=== PATIENT | male | born 1940 | race African-American/Black ===

== ENCOUNTER 2016-11-24 14:07 | Inpatient (IN) | payer MEDICARE ==
[~2016-11-24] VITALS: Ht 191.8 cm; Wt 76.3 kg
--- NOTE | 2016-11-24 14:57 | PHYS DOC ---
Past Medical History Past Medical History: Dementia, Hypertension Past Surgical History: No Surgical History Alcohol Use: None Drug Use: None Adult General Chief Complaint Chief Complaint: DIZZY/LIGHT HEADED HPI HPI Patient is a 76 year old male who [place]. Patient states he was standing at the post office and also became dizzy and lightheaded and almost passed out. Patient stated the episode lasted for less than 30 minutes. Patient was able to drive home and discussed the symptoms with his who recommended he come to the emergency room for evaluation. Patient denied any chest pain or shortness of breath. Patient is asymptomatic in the emergency room and feels much better. Patient states the dizziness has resolved. Patient denies any fevers. Patient has no other complaints. Pertinent exam findings: Cranial nerves II through XII are grossly intact without any focal neurological deficits Heart is regular rate and rhythm murmurs Lungs are clear to auscultation bilaterally without crackles wheezes or rales ED course: Patient was seen and evaluated in the emergency room a CBC, CMP, troponin, EKG, CT of the head without contrast was ordered 1503: EKG normal sinus rhythm rate of 63 no STEMI 1550: Troponin reported elevated lab 1603: Repeat EKG sinus bradycardia rate of 57 and a STEMI 1627: Discussed CC/HP/PMH with Dr. De Guzman and recommends admit and cardiology consult 1635: Discussed results with the patient and the plan to admit for the elevated troponin Pertinent findings: Troponin 0.297 CT the head unremarkable MDM: After reviewing the chart, CC/HPI/PMH, physical exam, [lab results], [ radiological results], do not patient have an STEMI despite the elevated troponin however given his symptoms of dizziness and the elevated troponin this could be cardiac in nature therefore will admit for further evaluation and management. Review of Systems Review of Systems GEN: Denies fevers, chills, sweats HEENT: Denies blurred vision, sore throat CV: Denies chest pain RESP: Denies shortness of air, cough GI: Denies n/v/d NEURO: Dizziness MSK: Denies weakness, joint pain/swelling Current Medications Current Medications Current Medications Medications (Trade) Dose Ordered Sig/Anthony Start Time Stop Time Status Last Admin Dose Admin Morphine Sulfate 4 mg PRN Q2HR PRN 11/24/16 16:30 11/25/16 16:29 Ondansetron HCl (Zofran) 4 mg PRN Q8HRS PRN 11/24/16 16:30 11/25/16 16:29 Sodium Chloride 1,000 ml @ 1,000 mls/hr 1X ONCE 11/24/16 15:15 11/24/16 16:14 DC 11/24/16 15:12 1,000 MLS/HR Allergies Allergies Allergies Coded Allergies Type Severity Reaction Last Updated Verified No Known Drug Allergies 11/24/16 No Physical Exam Physical Exam GEN.: No apparent distress. Alert and oriented. HEENT: Head is normocephalic, atraumatic NECK: Supple. LUNGS: CTAB. HEART: RRR, S1, S2 present. Peripheral pulses intact ABDOMEN: Soft, nontender. Positive bowel sounds. EXTREMITIES: Without any cyanosis. NEUROLOGIC: Normal speech, normal tone PSYCHIATRIC: Normal affect, normal mood. SKIN: No ulcerations Current Patient Data Vital Signs Vital Signs Date Time Temp Pulse Resp B/P (MAP) Pulse Ox O2 Delivery O2 Flow Rate FiO2 11/24/16 15:12 60 133/73 (93) 98 11/24/16 14:21 97.9 20 Room Air 97.9 Lab Values Laboratory Tests Test 11/24/16 14:15 11/24/16 15:00 11/24/16 15:20 White Blood Count 3.6 x10^3/uL (4.0-11.0) L Red Blood Count 4.20 x10^6/uL (4.30-5.70) L Hemoglobin 13.1 g/dL (13.0-17.5) Hematocrit 39.5 % (39.0-53.0) Mean Corpuscular Volume 94 fL (79-100) Mean Corpuscular Hemoglobin 31 pg (25-35) Mean Corpuscular Hemoglobin Concent 33 g/dL (31-37) Red Cell Distribution Width 13.8 % (11.5-14.5) Platelet Count 257 x10^3/uL (140-400) Neutrophils (%) (Auto) 41 % (31-73) Lymphocytes (%) (Auto) 46 % (24-48) Monocytes (%) (Auto) 11 % (0-9) H Eosinophils (%) (Auto) 2 % (0-3) Basophils (%) (Auto) 0 % (0-3) Neutrophils # (Auto) 1.5 x10^3uL (1.8-7.7) L Lymphocytes # (Auto) 1.7 x10^3/uL (1.0-4.8) Monocytes # (Auto) 0.4 x10^3/uL (0.0-1.1) Eosinophils # (Auto) 0.1 x10^3/uL (0.0-0.7) Basophils # (Auto) 0.0 x10^3/uL (0.0-0.2) Urine Collection Type Unknown Urine Color Yellow Urine Clarity Clear Urine pH 6.0 Urine Specific [place] <=1.005 Urine Protein Negative mg/dL (NEG-TRACE) Urine Glucose (UA) Negative mg/dL (NEG) Urine Ketones (Stick) Negative mg/dL (NEG) Urine Blood Negative (NEG) Urine Nitrite Negative (NEG) Urine Bilirubin Negative (NEG) Urine Urobilinogen Dipstick 0.2 mg/dL (0.2 mg/dL) Urine Leukocyte Esterase Negative (NEG) Urine RBC 0 /HPF (0-2) Urine WBC 0 /HPF (0-4) Urine Bacteria 0 /HPF (0-FEW) Sodium Level 138 mmol/L (136-145) Potassium Level 3.9 mmol/L (3.5-5.1) Chloride Level 100 mmol/L (98-107) Carbon Dioxide Level 29 mmol/L (21-32) Anion Gap 9 (6-14) Blood Urea Nitrogen 9 mg/dL (8-26) Creatinine 1.0 mg/dL (0.7-1.3) Estimated GFR (Cockcroft-Gault) 88.4 BUN/Creatinine Ratio 9 (6-20) Glucose Level 101 mg/dL (70-99) H Calcium Level 9.0 mg/dL (8.5-10.1) Total Bilirubin 0.7 mg/dL (0.2-1.0) Aspartate Amino Transferase (AST) 20 U/L (15-37) Alanine Aminotransferase (ALT) 22 U/L (16-63) Alkaline Phosphatase 53 U/L (46-116) Troponin I Quantitative 0.297 ng/mL (0.000-0.055) Total Protein 6.7 g/dL (6.4-8.2) Albumin 3.4 g/dL (3.4-5.0) Albumin/Globulin Ratio 1.0 (1.0-1.7) Laboratory Tests 11/24/16 14:15 Laboratory Tests 11/24/16 15:20 EKG EKG [] Radiology/Procedures Radiology/Procedures CT scan of the head unremarkable [] Course & Med Decision Making Course & Med Decision Making Pertinent Labs and Imaging studies reviewed. (See chart for details) [] Dragon Disclaimer Dragon Disclaimer This electronic medical record was generated, in whole or in part, using a voice recognition dictation system. Departure Departure Impression: Primary Impression: Elevated troponin Additional Impression: Dizziness Disposition: 09 ADMITTED INPATIENT Admitting Physician: Glory De Guzman Condition: STABLE Referrals: JOHN HARDEN MD (PCP) Problem Qualifiers CLARENCE BENJAMIN DO November 24, 2016 14:57
[2016-11-24 15:03] LABS: BASO % 0 % (0-3); EOS % 2 % (0-3); HEMATOCRIT 39.5 % (39.0-53.0); HEMOGLOBIN 13.1 g/dL (13.0-17.5); LYMPH # 1.7 x10^3/uL (1.0-4.8); LYMPH % 46 % (24-48); MEAN CORPUSCULAR HEMOGLOBIN 31 pg (25-35); MEAN CORPUSCULAR HGB CONC 33 g/dL (31-37); MEAN CORPUSCULAR VOLUME 94 fL (79-100); MONO % 11 % (0-9); NEUT % 41 % (31-73); PLATELET COUNT 257 x10^3/uL (140-400); RED CELL DISTRIBUTION WIDTH 13.8 % (11.5-14.5); WHITE BLOOD COUNT 3.6 x10^3/uL (4.0-11.0)
[2016-11-24 15:09] LABS: BILIRUBIN,URINE NEGATIVE (NEG); GLUCOSE,URINE NEGATIVE (NEG); NITRITE,URINE NEGATIVE (NEG); PROTEIN,URINE NEGATIVE (NEG-TRACE); UROBILINOGEN,URINE 0.2 mg/dL (0.2 mg/dL)
[2016-11-24] MEDS ORDERED: IV NORMAL SALINE 1000ML BAG 1,000 ML IV ONE (15:15)
--- NOTE | 2016-11-24 15:17 | RAD ---
Indication severe dizziness. Noncontrast images of the head were obtained. No prior imaging of the head is available. The calvarium appears unremarkable. The visualized paranasal sinuses appear normal. There is no subdural or epidural hematoma. There is some slight underlying atrophy compatible with the patient's age. Increased lucency in the deep white matter is compatible with microvascular disease. No mass hemorrhage midline shift or acute finding is apparent. IMPRESSION: No acute finding seen in the head PQRS Compliance Statement: One or more of the following individualized dose reduction techniques were utilized for this examination: 1. Automated exposure control 2. Adjustment of the mA and/or kV according to patient size 3. Use of iterative reconstruction technique
[2016-11-24 15:20] LABS: BACTERIA,URINE 0 /HPF (0-FEW); RBC,URINE 0 /HPF (0-2); WBC,URINE 0 /HPF (0-4)
[2016-11-24 15:37] LABS: GFR 88.4; POTASSIUM 3.9 mmol/L (3.5-5.1)
[2016-11-24 15:43] LABS: ALBUMIN 3.4 g/dL (3.4-5.0); TOTAL BILIRUBIN 0.7 mg/dL (0.2-1.0); TOTAL PROTEIN 6.7 g/dL (6.4-8.2)
--- NOTE | 2016-11-24 16:04 | EKG ---
[facility] [address] [place] [address] Test Date: 2016-11-24 Test Time: 15:58:42 Pat Name: CLARISSA MORGAN Department: Room: Gender: M Charge Account Authorizer: : 1940 Requested By: CLARENCE BENJAMIN Order Number: [id number] Reading MD: Michael Camarena Measurements Intervals [place] Rate: 57 P: NV: QRS: 15 QRSD: 70 T: 66 QT: 432 QTc: 424 Interpretive Statements SINUS BRADYCARDIA PAC'S Electronically Signed On 11-26-2016 9:18:34 CDT by Michael Camarena
--- NOTE | 2016-11-24 16:04 | EKG ---
[facility] [address] [place] [address] Test Date: 2016-11-24 Test Time: 14:24:22 Pat Name: CLARISSA MORGAN Department: Room: Gender: M Director Of Neurology: : 1940 Requested By: CLARENCE BENJAMIN Order Number: [id number] Reading MD: Michael Camarena Measurements Intervals [place] Rate: 63 P: 59 NC: 160 QRS: 12 QRSD: 72 T: 78 QT: 390 QTc: 402 Interpretive Statements SINUS RHYTHM PVC NON-SPECIFIC ST/T CHANGES Electronically Signed On 11-26-2016 9:17:01 CDT by Michael Camarena
[2016-11-24] MEDS ORDERED: ONDANSETRON PF 4 MG/2 ML VIAL. IV PRN ×2 (16:30→17:00)
[2016-11-24] MEDS ORDERED: MORPHINE SULFATE 4 MG/ML DISP.SYRIN. IV PRN (16:30)
--- NOTE | 2016-11-24 16:52 | PDOC1 ---
History and Physical Date of Admission Date of Admission 11/24/16 Identification/Chief Complaint Chief Complaint dizzyness Problems: Source Source: Chart review, Patient History of Present Illness History of Present Illness HPI Patient is a 76 year old male who presents with dizziness that occurred at the post office [place]. Pt said it never happened before. HE was standing in the post office, then felt light headed, for 1-2 min, then went to his car and the dizziness was gone. He didnot syncoped and able to drive home wo problem. He told his at home and was brought to ER. Pt denies chest pain, palpitation, sob, fever, chills, N/V. normal BM AND URInation. in ER was found troponin 0.2 , EKG ok as per ERP. cannot access EKG in the computer system. Past Medical History Cardiovascular: HTN Past Surgical History Past Surgical History: No pertinent history Family History Family History: Hypertension Social History Smoke: No ALCOHOL: occassional Drugs: None Current Medications Current Medications Current Medications Medications (Trade) Dose Ordered Sig/Nathony Start Time Stop Time Status Last Admin Dose Admin Morphine Sulfate 4 mg PRN Q2HR PRN 11/24/16 16:30 11/25/16 16:29 Ondansetron HCl (Zofran) 4 mg PRN Q8HRS PRN 11/24/16 16:30 11/25/16 16:29 Sodium Chloride 1,000 ml @ 1,000 mls/hr 1X ONCE 11/24/16 15:15 11/24/16 16:14 DC 11/24/16 15:12 1,000 MLS/HR Allergies Allergies Allergies Coded Allergies Type Severity Reaction Last Updated Verified No Known Drug Allergies 11/24/16 No ROS Review of System CONSTITUTIONAL: No fever or chills EYES: No recent changes SKIN: No rash or itching CARDIOVASCULAR: No chest pain, syncope, palpitations, or edema RESPIRATORY: No SOB or cough GASTROINTESTINAL: No nausea, vomiting or abdominal pain NEUROLOGICAL: No headaches or weakness ENDOCRINE: No cold or heat intolerance GENITOURINARY: No urgency or frequency of urination MUSCULOSKELETAL: No back pain or joint pain LYMPHATICS: No enlarged lymph nodes PSYCHIATRIC: No anxiety or depression Physical Exam Physical Exam GEN.: No apparent distress. Alert and oriented. HEENT: Head is normocephalic, atraumatic NECK: Supple. LUNGS: Clear to auscultation. HEART: RRR, S1, S2 present. Peripheral pulses intact ABDOMEN: Soft, nontender. Positive bowel sounds. EXTREMITIES: Without any cyanosis. NEUROLOGIC: Normal speech, normal tone PSYCHIATRIC: Normal affect, normal mood. SKIN: No ulcerations Vitals Vitals Vital Signs Date Time Temp Pulse Resp B/P (MAP) Pulse Ox O2 Delivery O2 Flow Rate FiO2 11/24/16 15:12 60 133/73 (93) 98 11/24/16 14:21 97.9 20 Room Air 97.9 Labs Labs Laboratory Tests Test 11/24/16 14:15 11/24/16 15:00 11/24/16 15:20 White Blood Count 3.6 x10^3/uL (4.0-11.0) Red Blood Count 4.20 x10^6/uL (4.30-5.70) Hemoglobin 13.1 g/dL (13.0-17.5) Hematocrit 39.5 % (39.0-53.0) Mean Corpuscular Volume 94 fL (79-100) Mean Corpuscular Hemoglobin 31 pg (25-35) Mean Corpuscular Hemoglobin Concent 33 g/dL (31-37) Red Cell Distribution Width 13.8 % (11.5-14.5) Platelet Count 257 x10^3/uL (140-400) Neutrophils (%) (Auto) 41 % (31-73) Lymphocytes (%) (Auto) 46 % (24-48) Monocytes (%) (Auto) 11 % (0-9) Eosinophils (%) (Auto) 2 % (0-3) Basophils (%) (Auto) 0 % (0-3) Neutrophils # (Auto) 1.5 x10^3uL (1.8-7.7) Lymphocytes # (Auto) 1.7 x10^3/uL (1.0-4.8) Monocytes # (Auto) 0.4 x10^3/uL (0.0-1.1) Eosinophils # (Auto) 0.1 x10^3/uL (0.0-0.7) Basophils # (Auto) 0.0 x10^3/uL (0.0-0.2) Urine Collection Type Unknown Urine Color Yellow Urine Clarity Clear Urine pH 6.0 Urine Specific [place] <=1.005 Urine Protein Negative mg/dL (NEG-TRACE) Urine Glucose (UA) Negative mg/dL (NEG) Urine Ketones (Stick) Negative mg/dL (NEG) Urine Blood Negative (NEG) Urine Nitrite Negative (NEG) Urine Bilirubin Negative (NEG) Urine Urobilinogen Dipstick 0.2 mg/dL (0.2 mg/dL) Urine Leukocyte Esterase Negative (NEG) Urine RBC 0 /HPF (0-2) Urine WBC 0 /HPF (0-4) Urine Bacteria 0 /HPF (0-FEW) Sodium Level 138 mmol/L (136-145) Potassium Level 3.9 mmol/L (3.5-5.1) Chloride Level 100 mmol/L (98-107) Carbon Dioxide Level 29 mmol/L (21-32) Anion Gap 9 (6-14) Blood Urea Nitrogen 9 mg/dL (8-26) Creatinine 1.0 mg/dL (0.7-1.3) Estimated GFR (Cockcroft-Gault) 88.4 BUN/Creatinine Ratio 9 (6-20) Glucose Level 101 mg/dL (70-99) Calcium Level 9.0 mg/dL (8.5-10.1) Total Bilirubin 0.7 mg/dL (0.2-1.0) Aspartate Amino Transf (AST/SGOT) 20 U/L (15-37) Alanine Aminotransferase (ALT/SGPT) 22 U/L (16-63) Alkaline Phosphatase 53 U/L (46-116) Troponin I Quantitative 0.297 ng/mL (0.000-0.055) Total Protein 6.7 g/dL (6.4-8.2) Albumin 3.4 g/dL (3.4-5.0) Albumin/Globulin Ratio 1.0 (1.0-1.7) Laboratory Tests Test 11/24/16 14:15 11/24/16 15:00 11/24/16 15:20 White Blood Count 3.6 x10^3/uL (4.0-11.0) Red Blood Count 4.20 x10^6/uL (4.30-5.70) Hemoglobin 13.1 g/dL (13.0-17.5) Hematocrit 39.5 % (39.0-53.0) Mean Corpuscular Volume 94 fL (79-100) Mean Corpuscular Hemoglobin 31 pg (25-35) Mean Corpuscular Hemoglobin Concent 33 g/dL (31-37) Red Cell Distribution Width 13.8 % (11.5-14.5) Platelet Count 257 x10^3/uL (140-400) Neutrophils (%) (Auto) 41 % (31-73) Lymphocytes (%) (Auto) 46 % (24-48) Monocytes (%) (Auto) 11 % (0-9) Eosinophils (%) (Auto) 2 % (0-3) Basophils (%) (Auto) 0 % (0-3) Neutrophils # (Auto) 1.5 x10^3uL (1.8-7.7) Lymphocytes # (Auto) 1.7 x10^3/uL (1.0-4.8) Monocytes # (Auto) 0.4 x10^3/uL (0.0-1.1) Eosinophils # (Auto) 0.1 x10^3/uL (0.0-0.7) Basophils # (Auto) 0.0 x10^3/uL (0.0-0.2) Urine Collection Type Unknown Urine Color Yellow Urine Clarity Clear Urine pH 6.0 Urine Specific [place] <=1.005 Urine Protein Negative mg/dL (NEG-TRACE) Urine Glucose (UA) Negative mg/dL (NEG) Urine Ketones (Stick) Negative mg/dL (NEG) Urine Blood Negative (NEG) Urine Nitrite Negative (NEG) Urine Bilirubin Negative (NEG) Urine Urobilinogen Dipstick 0.2 mg/dL (0.2 mg/dL) Urine Leukocyte Esterase Negative (NEG) Urine RBC 0 /HPF (0-2) Urine WBC 0 /HPF (0-4) Urine Bacteria 0 /HPF (0-FEW) Sodium Level 138 mmol/L (136-145) Potassium Level 3.9 mmol/L (3.5-5.1) Chloride Level 100 mmol/L (98-107) Carbon Dioxide Level 29 mmol/L (21-32) Anion Gap 9 (6-14) Blood Urea Nitrogen 9 mg/dL (8-26) Creatinine 1.0 mg/dL (0.7-1.3) Estimated GFR (Cockcroft-Gault) 88.4 BUN/Creatinine Ratio 9 (6-20) Glucose Level 101 mg/dL (70-99) Calcium Level 9.0 mg/dL (8.5-10.1) Total Bilirubin 0.7 mg/dL (0.2-1.0) Aspartate Amino Transf (AST/SGOT) 20 U/L (15-37) Alanine Aminotransferase (ALT/SGPT) 22 U/L (16-63) Alkaline Phosphatase 53 U/L (46-116) Troponin I Quantitative 0.297 ng/mL (0.000-0.055) Total Protein 6.7 g/dL (6.4-8.2) Albumin 3.4 g/dL (3.4-5.0) Albumin/Globulin Ratio 1.0 (1.0-1.7) VTE Prophylaxis Ordered VTE Prophylaxis Devices: Yes VTE Pharmacological Prophylaxi: Yes Assessment/Plan Assessment/Plan 1. dizzyness, lightheaded 2. high troponin, not clear etiology 3. HTN 4. H/O dementia? plan: card consult need home meds cycle CE check orthostatic HR, BP echo dvt ppx FEDERICA RON MD November 24, 2016 16:52
[2016-11-24] MEDS ORDERED: DOCUSATE SODIUM 100 MG CAPSULE. PO PRN (17:00)
[2016-11-24] MEDS ORDERED: MORPHINE SULFATE 2 MG/ML DISP.SYRIN. IV PRN (17:00)
[2016-11-24] MEDS ORDERED: traMADol 50 MG TABLET PO PRN (17:00)
[2016-11-24] MEDS ORDERED: hydrALAZINE 20 MG/ML VIAL. IVP PRN (17:00)
[2016-11-24] MEDS ORDERED: ACETAMINOPHEN 325 MG TABLET. PO PRN (17:00)
[2016-11-24] MEDS ORDERED: ASPIRIN CHEWABLE 81 MG TABLET. PO ONE (17:00)
[2016-11-24 17:15] VITALS: BP 153/80
--- NOTE | 2016-11-24 18:34 | ACF ---
Admission Forms Criteria DIZZINESS Clinical Indications for Admission to Inpatient Care (Place 'X' for any and all applicable criteria): Admission is indicated for ANY ONE of the following(1)(2)(3)(4): [ ]I. Inpatient admission required rather than observation care (Also use Dizziness: Observation Care as appropriate) because of ANY ONE of the following: [ ]a) Hemodynamic instability that is severe or persistent [ ]b) Signs or symptoms that are severe or persistent (eg, vomit, orthostasis, inability to ambulate) [ ]c) Cardiac arrhythmias of immediate concern [ ]d) Severe (new) neurologic findings requiring inpatient care as indicated by ANY ONE of the following(6)(7): [ ]1) Cerebral bleeding, ischemia, or vasospasm(8)(9) [ ]2) Increased intracranial pressure or hydrocephalus(10)(11)(12) [ ]3) Papilledema [ ]4) Cerebral edema [ ]5) Mass effect on CT scan [ ]e) Continuous IV infusion of anticoagulation, platelet inhibitor, vasoactive, or antiarrhythmic medication [ ]f) Cerebral bleeding, hydrocephalus, or vasospasm monitoring(14) [ ]g) Increased intracranial pressure or cerebral edema monitoring [ ]h) Vomiting that is severe or persistent [ ]i) Other condition, treatment or monitoring requiring inpatient admission [X]II. A suspected etiology that requires admission for treatment [ ]III. Acute bacterial labyrinthitis [ ]IV. Cerebellar, brainstem, or cerebral ischemia or hemorrhage (5) Extended stay beyond goal length of stay may be needed for evaluating and treating a specific cause of dizziness, including(32) [ ]a) Head injury (Also use Traumatic Brain Injury, Nonsurgical Treatment guideline) [ ]b) New-onset vertebrobasilar vascular insufficiency [ ]c) Acute Meniere disease with intractable symptoms [ ]d) Cardiac arrhythmias or conduction defects [ ]e) Acute neurologic event causing dizziness [ ]f) Myocardial ischemia [ ]g) Acute bacterial labyrinthitis. [ ]h) Severe acute vestibular neuronitis The original [facility] content created by [email or web address] has been revised. The portions of the content which have been revised are identified through the use of italic text or in bold, and [email or web address] has neither reviewed nor approved the modified material. All other unmodified content is copyright [facility]. Please see references footnoted in the original [facility] edition 2016 Admission Criteria Met?: Yes JUANA LIGHT November 24, 2016 18:34
[2016-11-24] MEDS ORDERED: DONE10TA7 PO (19:33)
[2016-11-24] MEDS ORDERED: SIMV10TA3 PO (19:33)
[2016-11-24] MEDS ORDERED: HYDR25TA9 PO (19:33)
[2016-11-24] MEDS ORDERED: CHOL20002 PO (19:33)
[2016-11-24] MEDS ORDERED: DOXA8TAB59 PO (19:33)
[2016-11-24] MEDS ORDERED: CHLO1CAP PO (19:33)
[2016-11-24 19:45] VITALS: BP 120/66
[2016-11-24] MEDS ORDERED: SIMVASTATIN 10 MG TABLET PO SCH (21:00)
[2016-11-24] MEDS: DOXAZOSIN MESYLATE 4 MG TABLET. PO SCH (21:30)
[2016-11-24 23:15] VITALS: BP 123/79
[2016-11-24 23:18] VITALS: BP 133/81
[2016-11-24 23:20] VITALS: BP 130/78
[2016-11-25] VITALS (7 sets, daily range): BP systolic 110–127; BP diastolic 55–79
[2016-11-25 04:14] LABS: BASO % 0 % (0-3); EOS % 1 % (0-3); HEMOGLOBIN 11.9 g/dL (13.0-17.5); LYMPH % 52 % (24-48); MEAN CORPUSCULAR HEMOGLOBIN 31 pg (25-35); MEAN CORPUSCULAR HGB CONC 33 g/dL (31-37); MEAN CORPUSCULAR VOLUME 93 fL (79-100); MONO % 11 % (0-9); NEUT % 36 % (31-73); PLATELET COUNT 230 x10^3/uL (140-400); RED BLOOD COUNT 3.85 x10^6/uL (4.30-5.70); RED CELL DISTRIBUTION WIDTH 13.8 % (11.5-14.5); WHITE BLOOD COUNT 3.8 x10^3/uL (4.0-11.0)
[2016-11-25 04:51] LABS: CALCIUM 8.7 mg/dL (8.5-10.1); CREATININE 0.9 mg/dL (0.7-1.3); GFR 99.8; POTASSIUM 3.6 mmol/L (3.5-5.1)
[2016-11-25] MEDS ORDERED: DONEPEZIL HCL 10 MG TABLET. PO SCH (09:00)
[2016-11-25] MEDS ORDERED: hydroCHLOROthiazide 25 MG TABLET PO SCH (09:00)
[2016-11-25] MEDS ORDERED: ENOXAPARIN 40 MG/0.4 ML SYRINGE. SQ SCH (09:00)
--- NOTE | 2016-11-25 09:30 | PDOC2 ---
CARDIAC CONSULT DATE OF CONSULT Date of Consult DATE: 11/25/16 TIME: 09:24 REASON FOR CONSULT Reason for Consult: elevated troponin REFERRING PHYSICIAN Referring Physician: jennifer SOURCE Source: Caregiver (spouse), Chart review, Patient HISTORY OF PRESENT ILLNESS HISTORY OF PRESENT ILLNESS This is a pleasant 76 male admitted for complains of dizziness. Reports that in the last few weeks she has been having very brief periods of dizziness which has not caused him any problems and this mainly happens when he skips food. No recent falls, injury or syncope. He has not been having any SOA, CP, or palpitations. He did get started on aricept about 1-1.5 months ago. He has been taking his cardura during the day. Verbalized that that morning he ate breakfast and drank sufficient amount of fluids. Reports that [place] and reports that while he was over there he started having blurry vision and dizzy like he was going to pass out. This sensation lasted for about 10 minutes before getting any better. He was standing up and transitioned to sitting. No cardiac symptoms at that time. Denies any facial tingling, unilateral weakness, facial droop or dysarthria. Currently denies any discomfort. PAST MEDICAL HISTORY Cardiovascular: HTN, Hyperlipidemia Pulmonary: No pertinent hx CENTRAL NERVOUS SYSTEM: Dementia GI: No pertinent hx Heme/Onc: No pertinent hx Hepatobiliary: No pertinent hx Psych: Anxiety Musculoskeletal: Osteoarthritis Rheumatologic: No pertinent hx Infectious disease: No pertinent hx ENT: No pertinent hx Renal/: Benign prostatic enlarg. Endocrine: No pertinent hx Dermatology: No pertinent hx PAST SURGICAL HISTORY Past Surgical History: No pertinent history FAMILY HISTORY Family History: Heart Disease SOCIAL HISTORY Smoke: No ALCOHOL: none Drugs: None Lives: with Family CURRENT MEDICATIONS CURRENT MEDICATIONS Current Medications Medications (Trade) Dose Ordered Sig/Anthony Route PRN Reason Start Time Stop Time Status Last Admin Dose Admin Sodium Chloride 1,000 ml @ 1,000 mls/hr 1X ONCE IV 11/24/16 15:15 11/24/16 16:14 DC 11/24/16 15:12 Aspirin (Children'S Aspirin) 324 mg 1X ONCE PO 11/24/16 17:00 11/24/16 17:01 DC 11/24/16 17:53 Simvastatin (Zocor) 10 mg QHS PO 11/24/16 21:00 11/24/16 21:29 Doxazosin Mesylate (Cardura) 8 mg QHS PO 11/24/16 21:00 11/24/16 21:30 ALLERGIES ALLERGIES: Coded Allergies: No Known Drug Allergies (Unverified , 11/24/16) ROS Review of System 14 point ROS evaluated with pertinent positives noted per HPI PHYSICAL EXAM General: Alert, Oriented X3, Cooperative, No acute distress HEENT: Atraumatic, Mucous membr. moist/pink Lungs: Clear to auscultation, Normal air movement Heart: Regular rate (SR with intermittent PVCs and PACs), Normal S1, Normal S2 , Other (2/6 systolic murmur to LLS border) Abdomen: Soft, No tenderness Extremities: No cyanosis, No edema Skin: No breakdown, No significant lesion Neuro: Normal speech, Sensation intact Psych/Mental Status: Mental status NL, Mood NL MUSCULOSKELETAL: Osteoarthritic changes both hands VITALS VITALS Vital Signs Date Time Temp Pulse Resp B/P (MAP) Pulse Ox O2 Delivery O2 Flow Rate FiO2 11/25/16 07:00 98.6 56 18 121/64 (83) 100 Room Air 98.6 LABS Lab: Laboratory Tests Test 11/24/16 14:15 11/24/16 15:00 11/24/16 15:20 11/25/16 03:15 White Blood Count 3.6 x10^3/uL (4.0-11.0) 3.8 x10^3/uL (4.0-11.0) Red Blood Count 4.20 x10^6/uL (4.30-5.70) 3.85 x10^6/uL (4.30-5.70) Hemoglobin 13.1 g/dL (13.0-17.5) 11.9 g/dL (13.0-17.5) Hematocrit 39.5 % (39.0-53.0) 36.0 % (39.0-53.0) Mean Corpuscular Volume 94 fL (79-100) 93 fL (79-100) Mean Corpuscular Hemoglobin 31 pg (25-35) 31 pg (25-35) Mean Corpuscular Hemoglobin Concent 33 g/dL (31-37) 33 g/dL (31-37) Red Cell Distribution Width 13.8 % (11.5-14.5) 13.8 % (11.5-14.5) Platelet Count 257 x10^3/uL (140-400) 230 x10^3/uL (140-400) Neutrophils (%) (Auto) 41 % (31-73) 36 % (31-73) Lymphocytes (%) (Auto) 46 % (24-48) 52 % (24-48) Monocytes (%) (Auto) 11 % (0-9) 11 % (0-9) Eosinophils (%) (Auto) 2 % (0-3) 1 % (0-3) Basophils (%) (Auto) 0 % (0-3) 0 % (0-3) Neutrophils # (Auto) 1.5 x10^3uL (1.8-7.7) 1.3 x10^3uL (1.8-7.7) Lymphocytes # (Auto) 1.7 x10^3/uL (1.0-4.8) 2.0 x10^3/uL (1.0-4.8) Monocytes # (Auto) 0.4 x10^3/uL (0.0-1.1) 0.4 x10^3/uL (0.0-1.1) Eosinophils # (Auto) 0.1 x10^3/uL (0.0-0.7) 0.0 x10^3/uL (0.0-0.7) Basophils # (Auto) 0.0 x10^3/uL (0.0-0.2) 0.0 x10^3/uL (0.0-0.2) Urine Collection Type Unknown Urine Color Yellow Urine Clarity Clear Urine pH 6.0 Urine Specific [place] <=1.005 Urine Protein Negative mg/dL (NEG-TRACE) Urine Glucose (UA) Negative mg/dL (NEG) Urine Ketones (Stick) Negative mg/dL (NEG) Urine Blood Negative (NEG) Urine Nitrite Negative (NEG) Urine Bilirubin Negative (NEG) Urine Urobilinogen Dipstick 0.2 mg/dL (0.2 mg/dL) Urine Leukocyte Esterase Negative (NEG) Urine RBC 0 /HPF (0-2) Urine WBC 0 /HPF (0-4) Urine Bacteria 0 /HPF (0-FEW) Sodium Level 138 mmol/L (136-145) 142 mmol/L (136-145) Potassium Level 3.9 mmol/L (3.5-5.1) 3.6 mmol/L (3.5-5.1) Chloride Level 100 mmol/L (98-107) 106 mmol/L (98-107) Carbon Dioxide Level 29 mmol/L (21-32) 27 mmol/L (21-32) Anion Gap 9 (6-14) 9 (6-14) Blood Urea Nitrogen 9 mg/dL (8-26) 9 mg/dL (8-26) Creatinine 1.0 mg/dL (0.7-1.3) 0.9 mg/dL (0.7-1.3) Estimated GFR (Cockcroft-Gault) 88.4 99.8 BUN/Creatinine Ratio 9 (6-20) Glucose Level 101 mg/dL (70-99) 86 mg/dL (70-99) Calcium Level 9.0 mg/dL (8.5-10.1) 8.7 mg/dL (8.5-10.1) Total Bilirubin 0.7 mg/dL (0.2-1.0) Aspartate Amino Transf (AST/SGOT) 20 U/L (15-37) Alanine Aminotransferase (ALT/SGPT) 22 U/L (16-63) Alkaline Phosphatase 53 U/L (46-116) Troponin I Quantitative 0.297 ng/mL (0.000-0.055) 0.250 ng/mL (0.000-0.055) Total Protein 6.7 g/dL (6.4-8.2) Albumin 3.4 g/dL (3.4-5.0) Albumin/Globulin Ratio 1.0 (1.0-1.7) ASSESSMENT/PLAN ASSESSMENT/PLAN 1. Presyncope: likely from arrhythmia, negative for orthostasis 2. Bradyarrhythmia: one EKG noted with WAP otherwise noting SB lowest at 46 recorded otherwise SR with occasional PACs and PVCs. Suspect aricept contributing but ischemic etiology could not be ruled out. 3. Elevated troponin: Peaked at 0.297, no CP no SOA. Rhythm changes contributing but ischemic workup to commence. 4. Dementia: recently started on aricept about a 1-1.5 months ago. 5. HTN: controlled. on HCTZ at home 6. BPH: on cardura but takes it during the day. 7. HLP: on statin. Recommendations 1. TTE and if abnormal will plan to start on heparin drip and proceed with LHC tomorrow. 2. Repeat EKG, PCXR 3. TSH, lipids, TSH, Mg, trend troponin 4. Continue with ECASA. 5. Hold HCTZ and aricept. advise switching cardura to bedtime 6. Secondary prevention Problems: KIMMIE NEWMAN APRN November 25, 2016 09:30
--- NOTE | 2016-11-25 10:08 | EKG ---
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
[2016-11-25 10:12] LABS: MAGNESIUM 2.1 mg/dL (1.8-2.4)
[2016-11-25 10:14] LABS: CHOLESTEROL/HDL RATIO 2.4
[2016-11-25] MEDS ORDERED: hydrALAZINE 20 MG/ML VIAL. IVP PRN (10:30)
[2016-11-25] MEDS ORDERED: HEPARIN for IV BOLUS 10,000 UNIT/10 ML VIAL. IV PRN (10:30)
[2016-11-25] MEDS ORDERED: HEPARIN 25,000UTS/500ML PREMIX 500 ML IV PRN (10:30)
[2016-11-25] MEDS ORDERED: HEPARIN for IV BOLUS 10,000 UNIT/10 ML VIAL. IV ONE (11:15)
[2016-11-25] MEDS: ASPIRIN ENTERIC COATED 81 MG TABLET.DR. PO SCH (11:34)
[2016-11-25] MEDS: CHOLECALCIFEROL (VITAMIN D3) 5,000 UNIT CAPSULE PO SCH (11:34)
--- NOTE | 2016-11-25 13:12 | RAD ---
Exam: AP portable chest. History: Dizziness, abnormal EKG. Comparison: 06/24/2014. Findings: The heart and mediastinal structures are within normal limits for size. Lungs are without infiltrate. No pneumothorax or pleural effusion is appreciated. Impression: 1. No acute cardiopulmonary process.
--- NOTE | 2016-11-25 13:51 | PDOC ---
Provider Note Provider Note 1300 11/25/2016 TTE and other diagnostic results and treatments discussed with pt and spouse LHC recommended. Risks and benefits discussed and agreeable to proceed. KIMMIE NEWMAN [employer]ANGLE [employer] CATCHER November 25, 2016 13:51
--- NOTE | 2016-11-25 14:29 | PDOC ---
PROGRESS NOTES Chief Complaint Chief Complaint 1. Presyncope: likely from arrhythmia, negative for orthostasis 2. Bradyarrhythmia: with occasional PACs and PVCs. 3. Elevated troponin: Peaked at 0.297, no CP no SOA. 4. Dementia: 5. HTN: controlled. on HCTZ at home 6. BPH: on cardura 7. Dyslipidemia History of Present Illness History of Present Illness Chart reviewed Denies sxs Trop peaked at 0.297 NEVER HAD CARDIAC cath done before Only past medical is HTN Occasional etoh, non smoker Hepatin gtt running VS ok PLAN: [facility] jennifer COnt heparin gtt Vitals Vitals Vital Signs Date Time Temp Pulse Resp B/P (MAP) Pulse Ox O2 Delivery O2 Flow Rate FiO2 11/25/16 11:00 98.1 70 18 111/55 (73) 98 Room Air 98.1 Physical Exam General: Alert, Oriented X3, Cooperative, No acute distress Heart: Regular rate (SR with intermittent PVCs and PACs), Normal S1, Normal S2 , Other (2/6 systolic murmur to LLS border) Lungs: Clear Abdomen: Soft, No tenderness Extremities: No cyanosis, No edema Skin: No breakdown, No significant lesion Labs LABS Laboratory Tests Test 11/24/16 15:00 11/24/16 15:20 11/25/16 03:15 11/25/16 09:50 Urine Collection Type Unknown Urine Color Yellow Urine Clarity Clear Urine pH 6.0 Urine Specific [place] <=1.005 Urine Protein Negative mg/dL (NEG-TRACE) Urine Glucose (UA) Negative mg/dL (NEG) Urine Ketones (Stick) Negative mg/dL (NEG) Urine Blood Negative (NEG) Urine Nitrite Negative (NEG) Urine Bilirubin Negative (NEG) Urine Urobilinogen Dipstick 0.2 mg/dL (0.2 mg/dL) Urine Leukocyte Esterase Negative (NEG) Urine RBC 0 /HPF (0-2) Urine WBC 0 /HPF (0-4) Urine Bacteria 0 /HPF (0-FEW) Sodium Level 138 mmol/L (136-145) 142 mmol/L (136-145) Potassium Level 3.9 mmol/L (3.5-5.1) 3.6 mmol/L (3.5-5.1) Chloride Level 100 mmol/L (98-107) 106 mmol/L (98-107) Carbon Dioxide Level 29 mmol/L (21-32) 27 mmol/L (21-32) Anion Gap 9 (6-14) 9 (6-14) Blood Urea Nitrogen 9 mg/dL (8-26) 9 mg/dL (8-26) Creatinine 1.0 mg/dL (0.7-1.3) 0.9 mg/dL (0.7-1.3) Estimated GFR (Cockcroft-Gault) 88.4 99.8 BUN/Creatinine Ratio 9 (6-20) Glucose Level 101 mg/dL (70-99) 86 mg/dL (70-99) Calcium Level 9.0 mg/dL (8.5-10.1) 8.7 mg/dL (8.5-10.1) Total Bilirubin 0.7 mg/dL (0.2-1.0) Aspartate Amino Transf (AST/SGOT) 20 U/L (15-37) Alanine Aminotransferase (ALT/SGPT) 22 U/L (16-63) Alkaline Phosphatase 53 U/L (46-116) Troponin I Quantitative 0.297 ng/mL (0.000-0.055) 0.250 ng/mL (0.000-0.055) 0.283 ng/mL (0.000-0.055) Total Protein 6.7 g/dL (6.4-8.2) Albumin 3.4 g/dL (3.4-5.0) Albumin/Globulin Ratio 1.0 (1.0-1.7) White Blood Count 3.8 x10^3/uL (4.0-11.0) Red Blood Count 3.85 x10^6/uL (4.30-5.70) Hemoglobin 11.9 g/dL (13.0-17.5) Hematocrit 36.0 % (39.0-53.0) Mean Corpuscular Volume 93 fL (79-100) Mean Corpuscular Hemoglobin 31 pg (25-35) Mean Corpuscular Hemoglobin Concent 33 g/dL (31-37) Red Cell Distribution Width 13.8 % (11.5-14.5) Platelet Count 230 x10^3/uL (140-400) Neutrophils (%) (Auto) 36 % (31-73) Lymphocytes (%) (Auto) 52 % (24-48) Monocytes (%) (Auto) 11 % (0-9) Eosinophils (%) (Auto) 1 % (0-3) Basophils (%) (Auto) 0 % (0-3) Neutrophils # (Auto) 1.3 x10^3uL (1.8-7.7) Lymphocytes # (Auto) 2.0 x10^3/uL (1.0-4.8) Monocytes # (Auto) 0.4 x10^3/uL (0.0-1.1) Eosinophils # (Auto) 0.0 x10^3/uL (0.0-0.7) Basophils # (Auto) 0.0 x10^3/uL (0.0-0.2) Magnesium Level 2.1 mg/dL (1.8-2.4) Creatine Kinase 162 U/L (39-308) Triglycerides Level 34 mg/dL (0-150) Cholesterol Level 207 mg/dL (0-200) LDL Cholesterol, Calculated 115 mg/dL (0-100) VLDL Cholesterol, Calculated 7 mg/dL (0-40) Non-HDL Cholesterol Calculated 122 mg/dL (0-129) HDL Cholesterol 85 mg/dL (40-60) Cholesterol/HDL Ratio 2.4 Thyroid Stimulating Hormone (TSH) 4.569 uIU/mL (0.358-3.74) Assessment and Plan Assessmemt and Plan denies 14 pt system Problems: Comment Review of Relevant I have reviewed the following items alfred (where applicable) has been applied. Labs Laboratory Tests Test 11/24/16 14:15 11/24/16 15:00 11/24/16 15:20 11/25/16 03:15 White Blood Count 3.6 x10^3/uL (4.0-11.0) 3.8 x10^3/uL (4.0-11.0) Red Blood Count 4.20 x10^6/uL (4.30-5.70) 3.85 x10^6/uL (4.30-5.70) Hemoglobin 13.1 g/dL (13.0-17.5) 11.9 g/dL (13.0-17.5) Hematocrit 39.5 % (39.0-53.0) 36.0 % (39.0-53.0) Mean Corpuscular Volume 94 fL (79-100) 93 fL (79-100) Mean Corpuscular Hemoglobin 31 pg (25-35) 31 pg (25-35) Mean Corpuscular Hemoglobin Concent 33 g/dL (31-37) 33 g/dL (31-37) Red Cell Distribution Width 13.8 % (11.5-14.5) 13.8 % (11.5-14.5) Platelet Count 257 x10^3/uL (140-400) 230 x10^3/uL (140-400) Neutrophils (%) (Auto) 41 % (31-73) 36 % (31-73) Lymphocytes (%) (Auto) 46 % (24-48) 52 % (24-48) Monocytes (%) (Auto) 11 % (0-9) 11 % (0-9) Eosinophils (%) (Auto) 2 % (0-3) 1 % (0-3) Basophils (%) (Auto) 0 % (0-3) 0 % (0-3) Neutrophils # (Auto) 1.5 x10^3uL (1.8-7.7) 1.3 x10^3uL (1.8-7.7) Lymphocytes # (Auto) 1.7 x10^3/uL (1.0-4.8) 2.0 x10^3/uL (1.0-4.8) Monocytes # (Auto) 0.4 x10^3/uL (0.0-1.1) 0.4 x10^3/uL (0.0-1.1) Eosinophils # (Auto) 0.1 x10^3/uL (0.0-0.7) 0.0 x10^3/uL (0.0-0.7) Basophils # (Auto) 0.0 x10^3/uL (0.0-0.2) 0.0 x10^3/uL (0.0-0.2) Urine Collection Type Unknown Urine Color Yellow Urine Clarity Clear Urine pH 6.0 Urine Specific [place] <=1.005 Urine Protein Negative mg/dL (NEG-TRACE) Urine Glucose (UA) Negative mg/dL (NEG) Urine Ketones (Stick) Negative mg/dL (NEG) Urine Blood Negative (NEG) Urine Nitrite Negative (NEG) Urine Bilirubin Negative (NEG) Urine Urobilinogen Dipstick 0.2 mg/dL (0.2 mg/dL) Urine Leukocyte Esterase Negative (NEG) Urine RBC 0 /HPF (0-2) Urine WBC 0 /HPF (0-4) Urine Bacteria 0 /HPF (0-FEW) Sodium Level 138 mmol/L (136-145) 142 mmol/L (136-145) Potassium Level 3.9 mmol/L (3.5-5.1) 3.6 mmol/L (3.5-5.1) Chloride Level 100 mmol/L (98-107) 106 mmol/L (98-107) Carbon Dioxide Level 29 mmol/L (21-32) 27 mmol/L (21-32) Anion Gap 9 (6-14) 9 (6-14) Blood Urea Nitrogen 9 mg/dL (8-26) 9 mg/dL (8-26) Creatinine 1.0 mg/dL (0.7-1.3) 0.9 mg/dL (0.7-1.3) Estimated GFR (Cockcroft-Gault) 88.4 99.8 BUN/Creatinine Ratio 9 (6-20) Glucose Level 101 mg/dL (70-99) 86 mg/dL (70-99) Calcium Level 9.0 mg/dL (8.5-10.1) 8.7 mg/dL (8.5-10.1) Total Bilirubin 0.7 mg/dL (0.2-1.0) Aspartate Amino Transf (AST/SGOT) 20 U/L (15-37) Alanine Aminotransferase (ALT/SGPT) 22 U/L (16-63) Alkaline Phosphatase 53 U/L (46-116) Troponin I Quantitative 0.297 ng/mL (0.000-0.055) 0.250 ng/mL (0.000-0.055) Total Protein 6.7 g/dL (6.4-8.2) Albumin 3.4 g/dL (3.4-5.0) Albumin/Globulin Ratio 1.0 (1.0-1.7) Magnesium Level 2.1 mg/dL (1.8-2.4) Creatine Kinase 162 U/L (39-308) Triglycerides Level 34 mg/dL (0-150) Cholesterol Level 207 mg/dL (0-200) LDL Cholesterol, Calculated 115 mg/dL (0-100) VLDL Cholesterol, Calculated 7 mg/dL (0-40) Non-HDL Cholesterol Calculated 122 mg/dL (0-129) HDL Cholesterol 85 mg/dL (40-60) Cholesterol/HDL Ratio 2.4 Thyroid Stimulating Hormone (TSH) 4.569 uIU/mL (0.358-3.74) Test 11/25/16 09:50 Troponin I Quantitative 0.283 ng/mL (0.000-0.055) Laboratory Tests Test 11/24/16 15:00 11/24/16 15:20 11/25/16 03:15 11/25/16 09:50 Urine Collection Type Unknown Urine Color Yellow Urine Clarity Clear Urine pH 6.0 Urine Specific [place] <=1.005 Urine Protein Negative mg/dL (NEG-TRACE) Urine Glucose (UA) Negative mg/dL (NEG) Urine Ketones (Stick) Negative mg/dL (NEG) Urine Blood Negative (NEG) Urine Nitrite Negative (NEG) Urine Bilirubin Negative (NEG) Urine Urobilinogen Dipstick 0.2 mg/dL (0.2 mg/dL) Urine Leukocyte Esterase Negative (NEG) Urine RBC 0 /HPF (0-2) Urine WBC 0 /HPF (0-4) Urine Bacteria 0 /HPF (0-FEW) Sodium Level 138 mmol/L (136-145) 142 mmol/L (136-145) Potassium Level 3.9 mmol/L (3.5-5.1) 3.6 mmol/L (3.5-5.1) Chloride Level 100 mmol/L (98-107) 106 mmol/L (98-107) Carbon Dioxide Level 29 mmol/L (21-32) 27 mmol/L (21-32) Anion Gap 9 (6-14) 9 (6-14) Blood Urea Nitrogen 9 mg/dL (8-26) 9 mg/dL (8-26) Creatinine 1.0 mg/dL (0.7-1.3) 0.9 mg/dL (0.7-1.3) Estimated GFR (Cockcroft-Gault) 88.4 99.8 BUN/Creatinine Ratio 9 (6-20) Glucose Level 101 mg/dL (70-99) 86 mg/dL (70-99) Calcium Level 9.0 mg/dL (8.5-10.1) 8.7 mg/dL (8.5-10.1) Total Bilirubin 0.7 mg/dL (0.2-1.0) Aspartate Amino Transf (AST/SGOT) 20 U/L (15-37) Alanine Aminotransferase (ALT/SGPT) 22 U/L (16-63) Alkaline Phosphatase 53 U/L (46-116) Troponin I Quantitative 0.297 ng/mL (0.000-0.055) 0.250 ng/mL (0.000-0.055) 0.283 ng/mL (0.000-0.055) Total Protein 6.7 g/dL (6.4-8.2) Albumin 3.4 g/dL (3.4-5.0) Albumin/Globulin Ratio 1.0 (1.0-1.7) White Blood Count 3.8 x10^3/uL (4.0-11.0) Red Blood Count 3.85 x10^6/uL (4.30-5.70) Hemoglobin 11.9 g/dL (13.0-17.5) Hematocrit 36.0 % (39.0-53.0) Mean Corpuscular Volume 93 fL (79-100) Mean Corpuscular Hemoglobin 31 pg (25-35) Mean Corpuscular Hemoglobin Concent 33 g/dL (31-37) Red Cell Distribution Width 13.8 % (11.5-14.5) Platelet Count 230 x10^3/uL (140-400) Neutrophils (%) (Auto) 36 % (31-73) Lymphocytes (%) (Auto) 52 % (24-48) Monocytes (%) (Auto) 11 % (0-9) Eosinophils (%) (Auto) 1 % (0-3) Basophils (%) (Auto) 0 % (0-3) Neutrophils # (Auto) 1.3 x10^3uL (1.8-7.7) Lymphocytes # (Auto) 2.0 x10^3/uL (1.0-4.8) Monocytes # (Auto) 0.4 x10^3/uL (0.0-1.1) Eosinophils # (Auto) 0.0 x10^3/uL (0.0-0.7) Basophils # (Auto) 0.0 x10^3/uL (0.0-0.2) Magnesium Level 2.1 mg/dL (1.8-2.4) Creatine Kinase 162 U/L (39-308) Triglycerides Level 34 mg/dL (0-150) Cholesterol Level 207 mg/dL (0-200) LDL Cholesterol, Calculated 115 mg/dL (0-100) VLDL Cholesterol, Calculated 7 mg/dL (0-40) Non-HDL Cholesterol Calculated 122 mg/dL (0-129) HDL Cholesterol 85 mg/dL (40-60) Cholesterol/HDL Ratio 2.4 Thyroid Stimulating Hormone (TSH) 4.569 uIU/mL (0.358-3.74) Medications Current Medications Sodium Chloride 1,000 ml @ 1,000 mls/hr 1X ONCE IV Last administered on t 15:12; Start 11/24/16 at 15:15; Stop 11/24/16 at 16:14; Status DC Ondansetron HCl (Zofran) 4 mg PRN Q8HRS PRN IV NAUSEA/VOMITING; Start 11/24/16 at 16:30; Stop 11/25/16 at 16:29 Morphine Sulfate 4 mg PRN Q2HR PRN IV PAIN; Start 11/24/16 at 16:30; Stop 11/25 at 16:29 Acetaminophen (Tylenol) 650 mg PRN Q6HRS PRN PO FEVER; Start 11/24/16 at 17:00 Ondansetron HCl (Zofran) 4 mg PRN Q6HRS PRN IV NAUSEA/VOMITING; Start 11/24/16 at 17:00 Morphine Sulfate 2 mg PRN Q2HR PRN IV PAIN; Start 11/24/16 at 17:00 Tramadol HCl (Ultram) 50 mg PRN Q6HRS PRN PO PAIN; Start 11/24/16 at 17:00 Hydralazine HCl (Apresoline) 10 mg PRN Q4HRS PRN IVP ELEVATED BP, SEE COMMENTS ; Start 11/24/16 at 17:00; Stop 11/25/16 at 10:13; Status DC Docusate Sodium (Colace) 100 mg PRN DAILY PRN PO CONSTIPATION; Start 11/24/16 at 17:00 Enoxaparin Sodium (Lovenox 40mg Syringe) 40 mg DAILY SQ ; Start 11/25/16 at 09: 00 Aspirin (Children'S Aspirin) 324 mg 1X ONCE PO Last administered on 11/24/16 17:53; Start 11/24/16 at 17:00; Stop 11/24/16 at 17:01; Status DC Donepezil HCl (Aricept) 10 mg DAILY PO ; Start 11/25/16 at 09:00; Stop 11/25/16 at 10:13; Status DC Hydrochlorothiazide (Hydrodiuril) 25 mg DAILY PO ; Start 11/25/16 at 09:00 Simvastatin (Zocor) 10 mg QHS PO Last administered on 11/24/16 21:29; Start at 21:00 Vitamin D (Vitamin D3) 5,000 unit DAILY PO Last administered on 11/25/16 11:34 ; Start 11/25/16 at 09:00 Doxazosin Mesylate (Cardura) 8 mg QHS PO Last administered on 11/24/16 21:30; Start 11/24/16 at 21:00 Aspirin (Ecotrin) 81 mg DAILYWBKFT PO Last administered on 11/25/16 11:34; Start 11/25/16 at 11:00 Heparin Sodium/ Dextrose 500 ml @ 17.9 mls/hr CONT PRN IV SEE I/O RECORD Last administered on 11/25/16 11:48; Start 11/25/16 at 10:30 Heparin Sodium (Porcine) (Heparin Sodium) 1,850 unit PRN Q6HRS PRN IV FOR UFH LEVEL LESS THAN 0.2; Start 11/25/16 at 10:30 Hydralazine HCl (Apresoline) 10 mg PRN Q4HRS PRN IVP ELEVATED BP, SEE COMMENTS ; Start 11/25/16 at 10:30 Atorvastatin Calcium (Lipitor) 40 mg QHS PO ; Start 11/25/16 at 21:00 Heparin Sodium (Porcine) (Heparin Sodium) 4,000 unit 1X ONCE IV Last administered on 11/25/16 11:46; Start 11/25/16 at 11:15; Stop 11/25/16 at 11:16 ; Status DC Active Scripts Active Reported Librax Capsule (Chlordiazepoxide/Clidinium Br) 1 Each Capsule 1 Cap PO DAILY PRN Donepezil Hcl 10 Mg Tablet 1 Tab PO DAILY Hydrochlorothiazide Tablet (Hydrochlorothiazide) 25 Mg Tablet 1 Tab PO DAILY Simvastatin 10 Mg Tablet 1 Tab PO QHS Doxazosin Mesylate 8 Mg Tablet 1 Tab PO HS Vitamin D-3 (Cholecalciferol (Vitamin D3)) 2,000 Unit Tablet 5,000 Unit PO DAILY Vitals/I & O Vital Sign - Last 24 Hours 11/24/16 11/24/16 11/24/16 11/24/16 15:12 16:09 17:09 17:15 Temp 97.7 97.7 Pulse 60 60 58 61 Resp 16 20 18 B/P (MAP) 133/73 (93) 140/73 (95) 143/94 (110) 153/80 (104) Pulse Ox 98 100 100 100 O2 Delivery Room Air 11/24/16 11/24/16 11/24/16 11/24/16 18:00 19:45 19:45 21:30 Temp 98.3 98.3 Pulse 62 62 Resp 18 B/P (MAP) 120/66 (84) 120/66 Pulse Ox 99 O2 Delivery Room Air Room Air Room Air 11/24/16 11/24/16 11/24/16 11/25/16 23:15 23:18 23:20 03:00 Temp 98.6 97.7 98.6 97.7 Pulse 66 91 100 62 Resp 18 18 B/P (MAP) 123/79 (94) 133/81 (98) 130/78 (95) 110/69 (83) Pulse Ox 100 100 O2 Delivery Room Air Room Air 11/25/16 11/25/16 11/25/16 07:00 08:00 11:00 Temp 98.6 98.1 98.6 98.1 Pulse 56 70 Resp 18 18 B/P (MAP) 121/64 (83) 111/55 (73) Pulse Ox 100 98 O2 Delivery Room Air Room Air Room Air Intake and Output 11/24/16 11/24/16 11/25/16 15:00 23:00 07:00 Intake Total 400 ml Balance 400 ml VARSHA DILLON MD November 25, 2016 14:29
--- NOTE | 2016-11-25 17:05 | CARD ---
APPROVED REPORT EXAM: Two-dimensional and M-mode echocardiogram with Doppler and color Doppler. Other Information Quality : Average Rhythm : NSR INDICATION Elevated troponin 2D DIMENSIONS Left Atrium(2D)2.8 (1.6-4.0cm)IVSd0.7 (0.7-1.1cm) Aortic Root(2D)3.0 (2.0-3.7cm)LVDd5.9 (3.9-5.9cm) LVOT Diameter2.0 (1.8-2.4cm)PWd0.7 (0.7-1.1cm) LVDs5.3 (2.5-4.0cm)SV34.6 ml Aortic Valve AoV Peak Hector.136.3cm/sAoV VTI30.5cm AO Peak GR.7.4mmHgLVOT VTI 15.84cm AO Mean GR.4mmHg Mitral Valve MV E Skfbxjgm44.5cm/sMV E Peak Gr.0mmHg MV DECEL [id number] A Rhlfpkqc96.9cm/s MV E Mean Gr.0mmHgMV GVQ20kn E/A Ratio1.2MV A Ftaabrec440kt MVA (PHT)11.00cm2 Tricuspid Valve TR P. Quyjihfi728ut/sRAP HVLZACKP4ciAp TR Peak Gr.35cbOrPODX00gpWq LEFT VENTRICLE The Left Ventricle is borderline dilated. There is normal left ventricular wall thickness. Left ventr icle systolic function is mildly impaired. The Ejection Fraction is 40-45%. There is global hypokines is of the left ventricle. The left ventricular diastolic function and filling is normal for age. RIGHT VENTRICLE The right ventricle is normal size. The right ventricular systolic function is normal. ATRIA The left atrium size is normal. The right atrium size is normal. The interatrial septum is intact wit h no evidence for an atrial septal defect or patent foramen ovale as noted on 2-D or Doppler imaging. AORTIC VALVE The aortic valve is normal in structure and function. The aortic valve is trileaflet. Doppler and Col or Flow revealed no significant aortic regurgitation. There is no significant aortic valvular stenosi s. MITRAL VALVE The anterior mitral valve leaflet has a hockey stick appearance. There is no mitral valve stenosis. D oppler and Color Flow revealed mild mitral regurgitation. TRICUSPID VALVE The tricuspid valve is normal in structure and function. Doppler and Color Flow revealed trace to mil d tricuspid regurgitation. The PA pressure was estimated at 22 mmHg. There is no tricuspid valve sten osis. PULMONIC VALVE The pulmonic valve is not well visualized. Doppler and Color Flow revealed no pulmonic valvular regur gitation. There is no pulmonic valvular stenosis. GREAT VESSELS The aortic root is normal in size. The IVC is normal in size and collapses >50% with inspiration. PERICARDIAL EFFUSION There is no evidence of significant pericardial effusion. Critical Notification Date: 11/25/2016 Time: 10:45 Other Discipline : Hugh Bowie APRN Critical Value: Yes <Conclusion> The Left Ventricle is borderline dilated. Left ventricle systolic function is mildly impaired. The Ejection Fraction is 40-45%. There is global hypokinesis of the left ventricle. There is no significant aortic valvular stenosis. Doppler and Color Flow revealed no significant aortic regurgitation. Doppler and Color Flow revealed mild mitral regurgitation. Doppler and Color Flow revealed trace to mild tricuspid regurgitation. The PA pressure was estimated at 22 mmHg.
[2016-11-25] MEDS: LISINOPRIL 5 MG TABLET. PO SCH (18:13)
[2016-11-25] MEDS: ATORVASTATIN CALCIUM 40 MG TABLET. PO SCH (21:31)
[2016-11-25] MEDS: DOXAZOSIN MESYLATE 4 MG TABLET. PO SCH (21:32)
[2016-11-26] VITALS (13 sets, daily range): BP systolic 103–164; BP diastolic 66–85
[2016-11-26] MEDS: ALPRAZolam 0.25 MG TABLET PO PRN ×2 (00:36→19:23)
[2016-11-26 03:40] LABS: HEMATOCRIT 35.9 % (39.0-53.0); HEMOGLOBIN 11.8 g/dL (13.0-17.5); RED BLOOD COUNT 3.82 x10^6/uL (4.30-5.70); RED CELL DISTRIBUTION WIDTH 13.6 % (11.5-14.5); WHITE BLOOD COUNT 4.3 x10^3/uL (4.0-11.0)
[2016-11-26 05:08] LABS: CALCIUM 8.5 mg/dL (8.5-10.1); CREATININE 0.8 mg/dL (0.7-1.3); GFR 114.3; POTASSIUM 3.2 mmol/L (3.5-5.1)
[2016-11-26] MEDS ORDERED: ANTI-COAG MONITOR BY PHARMACY. MC PRN (07:45)
[2016-11-26] MEDS: LISINOPRIL 5 MG TABLET. PO SCH (08:35)
[2016-11-26] MEDS: ASPIRIN ENTERIC COATED 81 MG TABLET.DR. PO SCH (08:36)
[2016-11-26] MEDS: DOXAZOSIN MESYLATE 4 MG TABLET. PO SCH (08:38)
[2016-11-26] MEDS ORDERED: POTASSIUM CHLORIDE 20 MEQ TABLET.ER. PO ONE ×2 (10:00→16:15)
--- NOTE | 2016-11-26 10:40 | PDOC ---
PROGRESS NOTES Chief Complaint Chief Complaint 1. Presyncope: likely from arrhythmia, negative for orthostasis 2. Bradyarrhythmia: with occasional PACs and PVCs. 3. Elevated troponin: Peaked at 0.297, no CP no SOA. 4. Dementia with acute on chronic encephalopathy 5. HTN: controlled. on HCTZ at home 6. BPH: on cardura 7. Dyslipidemia History of Present Illness History of Present Illness Some anxiety last night - night Rn Called for I gave xanax- did him well per family at bedside Calm but can be confused, points to the ceiling Planned for cardiac cath today PLAn: Cath today MAy chesk esr, b12 and folate Likely this is all dementia Awaiting PT eval after cath or maybe jennifer- might need SNU dw family and RN Vitals Vitals Vital Signs Date Time Temp Pulse Resp B/P (MAP) Pulse Ox O2 Delivery O2 Flow Rate FiO2 11/26/16 08:38 62 123/79 11/26/16 08:00 Room Air 11/26/16 07:00 98.1 20 100 98.1 Physical Exam General: Alert, Oriented X3, Cooperative, No acute distress Heart: Regular rate (SR with intermittent PVCs and PACs), Normal S1, Normal S2 , Other (2/6 systolic murmur to LLS border) Lungs: Clear Abdomen: Soft, No tenderness Extremities: No cyanosis, No edema Skin: No breakdown, No significant lesion Labs LABS Laboratory Tests Test 11/25/16 17:40 11/26/16 03:20 11/26/16 09:25 Heparin Anti-Xa Act, Unfractionated 0.23 IU/mL (0.30-0.70) 0.36 IU/mL (0.30-0.70) 0.48 IU/mL (0.30-0.70) White Blood Count 4.3 x10^3/uL (4.0-11.0) Red Blood Count 3.82 x10^6/uL (4.30-5.70) Hemoglobin 11.8 g/dL (13.0-17.5) Hematocrit 35.9 % (39.0-53.0) Mean Corpuscular Volume 94 fL (79-100) Mean Corpuscular Hemoglobin 31 pg (25-35) Mean Corpuscular Hemoglobin Concent 33 g/dL (31-37) Red Cell Distribution Width 13.6 % (11.5-14.5) Platelet Count 228 x10^3/uL (140-400) Sodium Level 142 mmol/L (136-145) Potassium Level 3.2 mmol/L (3.5-5.1) Chloride Level 107 mmol/L (98-107) Carbon Dioxide Level 28 mmol/L (21-32) Anion Gap 7 (6-14) Blood Urea Nitrogen 8 mg/dL (8-26) Creatinine 0.8 mg/dL (0.7-1.3) Estimated GFR (Cockcroft-Gault) 114.3 Glucose Level 109 mg/dL (70-99) Calcium Level 8.5 mg/dL (8.5-10.1) Review of Systems Review of Systems unreliable, calmy confused Comment Review of Relevant I have reviewed the following items alfred (where applicable) has been applied. Labs Laboratory Tests Test 11/24/16 14:15 11/24/16 15:00 11/24/16 15:20 11/25/16 03:15 White Blood Count 3.6 x10^3/uL (4.0-11.0) 3.8 x10^3/uL (4.0-11.0) Red Blood Count 4.20 x10^6/uL (4.30-5.70) 3.85 x10^6/uL (4.30-5.70) Hemoglobin 13.1 g/dL (13.0-17.5) 11.9 g/dL (13.0-17.5) Hematocrit 39.5 % (39.0-53.0) 36.0 % (39.0-53.0) Mean Corpuscular Volume 94 fL (79-100) 93 fL (79-100) Mean Corpuscular Hemoglobin 31 pg (25-35) 31 pg (25-35) Mean Corpuscular Hemoglobin Concent 33 g/dL (31-37) 33 g/dL (31-37) Red Cell Distribution Width 13.8 % (11.5-14.5) 13.8 % (11.5-14.5) Platelet Count 257 x10^3/uL (140-400) 230 x10^3/uL (140-400) Neutrophils (%) (Auto) 41 % (31-73) 36 % (31-73) Lymphocytes (%) (Auto) 46 % (24-48) 52 % (24-48) Monocytes (%) (Auto) 11 % (0-9) 11 % (0-9) Eosinophils (%) (Auto) 2 % (0-3) 1 % (0-3) Basophils (%) (Auto) 0 % (0-3) 0 % (0-3) Neutrophils # (Auto) 1.5 x10^3uL (1.8-7.7) 1.3 x10^3uL (1.8-7.7) Lymphocytes # (Auto) 1.7 x10^3/uL (1.0-4.8) 2.0 x10^3/uL (1.0-4.8) Monocytes # (Auto) 0.4 x10^3/uL (0.0-1.1) 0.4 x10^3/uL (0.0-1.1) Eosinophils # (Auto) 0.1 x10^3/uL (0.0-0.7) 0.0 x10^3/uL (0.0-0.7) Basophils # (Auto) 0.0 x10^3/uL (0.0-0.2) 0.0 x10^3/uL (0.0-0.2) Urine Collection Type Unknown Urine Color Yellow Urine Clarity Clear Urine pH 6.0 Urine Specific [place] <=1.005 Urine Protein Negative mg/dL (NEG-TRACE) Urine Glucose (UA) Negative mg/dL (NEG) Urine Ketones (Stick) Negative mg/dL (NEG) Urine Blood Negative (NEG) Urine Nitrite Negative (NEG) Urine Bilirubin Negative (NEG) Urine Urobilinogen Dipstick 0.2 mg/dL (0.2 mg/dL) Urine Leukocyte Esterase Negative (NEG) Urine RBC 0 /HPF (0-2) Urine WBC 0 /HPF (0-4) Urine Bacteria 0 /HPF (0-FEW) Sodium Level 138 mmol/L (136-145) 142 mmol/L (136-145) Potassium Level 3.9 mmol/L (3.5-5.1) 3.6 mmol/L (3.5-5.1) Chloride Level 100 mmol/L (98-107) 106 mmol/L (98-107) Carbon Dioxide Level 29 mmol/L (21-32) 27 mmol/L (21-32) Anion Gap 9 (6-14) 9 (6-14) Blood Urea Nitrogen 9 mg/dL (8-26) 9 mg/dL (8-26) Creatinine 1.0 mg/dL (0.7-1.3) 0.9 mg/dL (0.7-1.3) Estimated GFR (Cockcroft-Gault) 88.4 99.8 BUN/Creatinine Ratio 9 (6-20) Glucose Level 101 mg/dL (70-99) 86 mg/dL (70-99) Calcium Level 9.0 mg/dL (8.5-10.1) 8.7 mg/dL (8.5-10.1) Total Bilirubin 0.7 mg/dL (0.2-1.0) Aspartate Amino Transf (AST/SGOT) 20 U/L (15-37) Alanine Aminotransferase (ALT/SGPT) 22 U/L (16-63) Alkaline Phosphatase 53 U/L (46-116) Troponin I Quantitative 0.297 ng/mL (0.000-0.055) 0.250 ng/mL (0.000-0.055) Total Protein 6.7 g/dL (6.4-8.2) Albumin 3.4 g/dL (3.4-5.0) Albumin/Globulin Ratio 1.0 (1.0-1.7) Magnesium Level 2.1 mg/dL (1.8-2.4) Creatine Kinase 162 U/L (39-308) Triglycerides Level 34 mg/dL (0-150) Cholesterol Level 207 mg/dL (0-200) LDL Cholesterol, Calculated 115 mg/dL (0-100) VLDL Cholesterol, Calculated 7 mg/dL (0-40) Non-HDL Cholesterol Calculated 122 mg/dL (0-129) HDL Cholesterol 85 mg/dL (40-60) Cholesterol/HDL Ratio 2.4 Thyroid Stimulating Hormone (TSH) 4.569 uIU/mL (0.358-3.74) Test 11/25/16 09:50 11/25/16 17:40 11/26/16 03:20 11/26/16 09:25 Troponin I Quantitative 0.283 ng/mL (0.000-0.055) Heparin Anti-Xa Act, Unfractionated 0.23 IU/mL (0.30-0.70) 0.36 IU/mL (0.30-0.70) 0.48 IU/mL (0.30-0.70) White Blood Count 4.3 x10^3/uL (4.0-11.0) Red Blood Count 3.82 x10^6/uL (4.30-5.70) Hemoglobin 11.8 g/dL (13.0-17.5) Hematocrit 35.9 % (39.0-53.0) Mean Corpuscular Volume 94 fL (79-100) Mean Corpuscular Hemoglobin 31 pg (25-35) Mean Corpuscular Hemoglobin Concent 33 g/dL (31-37) Red Cell Distribution Width 13.6 % (11.5-14.5) Platelet Count 228 x10^3/uL (140-400) Sodium Level 142 mmol/L (136-145) Potassium Level 3.2 mmol/L (3.5-5.1) Chloride Level 107 mmol/L (98-107) Carbon Dioxide Level 28 mmol/L (21-32) Anion Gap 7 (6-14) Blood Urea Nitrogen 8 mg/dL (8-26) Creatinine 0.8 mg/dL (0.7-1.3) Estimated GFR (Cockcroft-Gault) 114.3 Glucose Level 109 mg/dL (70-99) Calcium Level 8.5 mg/dL (8.5-10.1) Laboratory Tests Test 11/25/16 17:40 11/26/16 03:20 11/26/16 09:25 Heparin Anti-Xa Act, Unfractionated 0.23 IU/mL (0.30-0.70) 0.36 IU/mL (0.30-0.70) 0.48 IU/mL (0.30-0.70) White Blood Count 4.3 x10^3/uL (4.0-11.0) Red Blood Count 3.82 x10^6/uL (4.30-5.70) Hemoglobin 11.8 g/dL (13.0-17.5) Hematocrit 35.9 % (39.0-53.0) Mean Corpuscular Volume 94 fL (79-100) Mean Corpuscular Hemoglobin 31 pg (25-35) Mean Corpuscular Hemoglobin Concent 33 g/dL (31-37) Red Cell Distribution Width 13.6 % (11.5-14.5) Platelet Count 228 x10^3/uL (140-400) Sodium Level 142 mmol/L (136-145) Potassium Level 3.2 mmol/L (3.5-5.1) Chloride Level 107 mmol/L (98-107) Carbon Dioxide Level 28 mmol/L (21-32) Anion Gap 7 (6-14) Blood Urea Nitrogen 8 mg/dL (8-26) Creatinine 0.8 mg/dL (0.7-1.3) Estimated GFR (Cockcroft-Gault) 114.3 Glucose Level 109 mg/dL (70-99) Calcium Level 8.5 mg/dL (8.5-10.1) Medications Current Medications Sodium Chloride 1,000 ml @ 1,000 mls/hr 1X ONCE IV Last administered on t 15:12; Start 11/24/16 at 15:15; Stop 11/24/16 at 16:14; Status DC Ondansetron HCl (Zofran) 4 mg PRN Q8HRS PRN IV NAUSEA/VOMITING; Start 11/24/16 at 16:30; Stop 11/25/16 at 16:29; Status DC Morphine Sulfate 4 mg PRN Q2HR PRN IV PAIN; Start 11/24/16 at 16:30; Stop 11/25 at 16:29; Status DC Acetaminophen (Tylenol) 650 mg PRN Q6HRS PRN PO FEVER; Start 11/24/16 at 17:00 Ondansetron HCl (Zofran) 4 mg PRN Q6HRS PRN IV NAUSEA/VOMITING; Start 11/24/16 at 17:00 Morphine Sulfate 2 mg PRN Q2HR PRN IV PAIN; Start 11/24/16 at 17:00 Tramadol HCl (Ultram) 50 mg PRN Q6HRS PRN PO PAIN; Start 11/24/16 at 17:00 Hydralazine HCl (Apresoline) 10 mg PRN Q4HRS PRN IVP ELEVATED BP, SEE COMMENTS ; Start 11/24/16 at 17:00; Stop 11/25/16 at 10:13; Status DC Docusate Sodium (Colace) 100 mg PRN DAILY PRN PO CONSTIPATION; Start 11/24/16 at 17:00 Enoxaparin Sodium (Lovenox 40mg Syringe) 40 mg DAILY SQ ; Start 11/25/16 at 09: 00; Stop 11/25/16 at 15:28; Status DC Aspirin (Children'S Aspirin) 324 mg 1X ONCE PO Last administered on 11/24/16 17:53; Start 11/24/16 at 17:00; Stop 11/24/16 at 17:01; Status DC Donepezil HCl (Aricept) 10 mg DAILY PO ; Start 11/25/16 at 09:00; Stop 11/25/16 at 10:13; Status DC Hydrochlorothiazide (Hydrodiuril) 25 mg DAILY PO ; Start 11/25/16 at 09:00; Stop 11/25/16 at 15:28; Status DC Simvastatin (Zocor) 10 mg QHS PO Last administered on 11/24/16 21:29; Start at 21:00; Stop 11/25/16 at 15:28; Status DC Vitamin D (Vitamin D3) 5,000 unit DAILY PO Last administered on 11/25/16 11:34 ; Start 11/25/16 at 09:00 Doxazosin Mesylate (Cardura) 8 mg QHS PO Last administered on 11/26/16 08:38; Start 11/24/16 at 21:00 Aspirin (Ecotrin) 81 mg DAILYWBKFT PO Last administered on 11/26/16 08:36; Start 11/25/16 at 11:00 Heparin Sodium/ Dextrose 500 ml @ 17.9 mls/hr CONT PRN IV SEE I/O RECORD Last administered on 11/25/16 11:48; Start 11/25/16 at 10:30 Heparin Sodium (Porcine) (Heparin Sodium) 1,850 unit PRN Q6HRS PRN IV FOR UFH LEVEL LESS THAN 0.2; Start 11/25/16 at 10:30 Hydralazine HCl (Apresoline) 10 mg PRN Q4HRS PRN IVP ELEVATED BP, SEE COMMENTS ; Start 11/25/16 at 10:30 Atorvastatin Calcium (Lipitor) 40 mg QHS PO Last administered on 11/25/16 21: 31; Start 11/25/16 at 21:00 Heparin Sodium (Porcine) (Heparin Sodium) 4,000 unit 1X ONCE IV Last administered on 11/25/16 11:46; Start 11/25/16 at 11:15; Stop 11/25/16 at 11:16 ; Status DC Lisinopril (Prinivil) 5 mg DAILY PO Last administered on 11/26/16 08:35; Start 11/25/16 at 16:00 Alprazolam (Xanax) 0.25 mg PRN Q8HRS PRN PO ANXIETY / AGITATION Last administered on 11/26/16 00:36; Start 11/25/16 at 22:00 Info (Anti-Coagulation Monitoring By Pharmacy) 1 each PRN DAILY PRN MC SEE COMMENTS Last administered on 11/26/16 07:41; Start 11/26/16 at 07:45 Potassium Chloride (Klor-Con) 40 meq 1X ONCE PO ; Start 11/26/16 at 10:00; Stop 11/26/16 at 10:01; Status DC Active Scripts Active Reported Librax Capsule (Chlordiazepoxide/Clidinium Br) 1 Each Capsule 1 Cap PO DAILY PRN Donepezil Hcl 10 Mg Tablet 1 Tab PO DAILY Hydrochlorothiazide Tablet (Hydrochlorothiazide) 25 Mg Tablet 1 Tab PO DAILY Simvastatin 10 Mg Tablet 1 Tab PO QHS Doxazosin Mesylate 8 Mg Tablet 1 Tab PO HS Vitamin D-3 (Cholecalciferol (Vitamin D3)) 2,000 Unit Tablet 5,000 Unit PO DAILY Vitals/I & O Vital Sign - Last 24 Hours 11/25/16 11/25/16 11/25/16 11/25/16 11:00 15:00 18:13 19:35 Temp 98.1 97.9 98.1 97.9 Pulse 70 67 65 Resp 18 18 B/P (MAP) 111/55 (73) 127/79 (95) 127/74 Pulse Ox 98 100 O2 Delivery Room Air Room Air Room Air 11/25/16 11/25/16 11/25/16 11/25/16 19:55 20:03 21:32 22:06 Temp 97.9 97.9 98.0 97.9 97.9 98.0 Pulse 64 64 64 54 Resp 18 18 18 B/P (MAP) 116/62 (80) 116/62 (80) 116/62 125/67 (86) Pulse Ox 98 98 97 O2 Delivery Room Air Room Air Room Air 11/26/16 11/26/16 11/26/16 11/26/16 03:20 07:00 08:00 08:35 Temp 97.9 98.1 97.9 98.1 Pulse 62 82 62 Resp 20 20 B/P (MAP) 123/79 (94) 145/85 (105) 123/79 Pulse Ox 99 100 O2 Delivery Room Air Room Air Room Air 11/26/16 08:38 Pulse 62 B/P (MAP) 123/79 Intake and Output 11/25/16 11/25/16 11/26/16 15:00 23:00 07:00 Intake Total 550 ml 0 ml Balance 550 ml 0 ml VARSHA DILLON MD Nov 26, 2016 10:40
[2016-11-26] MEDS ORDERED: LIDOCAINE 2% 20 ML VIAL. ONE (14:02)
[2016-11-26] MEDS ORDERED: IOHEXOL 300 MG/ML 100ML VIAL. ONE (14:02)
[2016-11-26] MEDS ORDERED: IOHEXOL 350 MG/ML 100 ML VIAL. ONE (14:02)
[2016-11-26] MEDS ORDERED: VERAPAMIL 5 MG/2 ML VIAL. ONE (14:41)
[2016-11-26] MEDS ORDERED: NITROGLYCERIN 200 MCG/2 ML SYRINGE FOR CATH/VASC LAB. ONE (14:41)
[2016-11-26] MEDS ORDERED: fentaNYL PF VIAL 100 MCG/2 ML VIAL ONE (14:41)
[2016-11-26] MEDS ORDERED: HEPARIN for IV BOLUS 10,000 UNIT/10 ML VIAL. ONE (14:41)
[2016-11-26] MEDS ORDERED: MIDAZOLAM HCL/PF 2 MG/2 ML VIAL. ONE (14:42)
[2016-11-26] MEDS ORDERED: LIDOCAINE 2% 20 ML VIAL. IJ ONE (15:00)
[2016-11-26] MEDS ORDERED: VERAPAMIL 5 MG/2 ML VIAL. IART ONE (15:00)
[2016-11-26] MEDS ORDERED: HEPARIN for IV BOLUS 10,000 UNIT/10 ML VIAL. IART ONE (15:00)
[2016-11-26] MEDS ORDERED: IOHEXOL 300 MG/ML 100ML VIAL. IART ONE (15:00)
[2016-11-26] MEDS ORDERED: fentaNYL PF VIAL 100 MCG/2 ML VIAL IV ONE (15:00)
[2016-11-26] MEDS ORDERED: MIDAZOLAM HCL/PF 2 MG/2 ML VIAL. IV ONE (15:00)
[2016-11-26] MEDS ORDERED: NITROGLYCERIN 200 MCG/2 ML SYRINGE FOR CATH/VASC LAB. IART ONE (15:00)
--- NOTE | 2016-11-26 15:29 | CARD ---
APPROVED REPORT Procedure(s) performed: Left Heart Catheterization, Coronary angiography, Left ventriculography. HISTORY : The patient is a 76 year-old male with a history of . INDICATION The indication(s) include : atypical chest pain , non-STEMI Trop 0.247, dyspnea, Cardiomyopathy, EF 4 0-45% by echo. . CASE TECHNIQUE During this case, Fluoroscopy and low osmolar contrast were used for imaging. PROCEDURE NARRATIVE The patient was brought electively to the cardiac catheterization lab. A timeout was performed confi rming the patient's name, date of , procedure, and site of procedure. All necessary personnel w ere wearing the appropriate protective equipment and radiation monitor devices. After explaining the risks and benefits of the procedure and alternatives, informed consent was obtained. (See nursing no sumaya for medications administered). The right wrist was sterilely prepped and draped in the usual fas hion. The right wrist was infiltrated with 1 mL of 2% lidocaine for subcutaneous anesthesia. A 6 Fr ench Terumo glide sheath was inserted into the right radial artery without difficulty. Right and lef t coronary angiography was performed using a 6Fr TIG 4.0 catheter. Left ventricular end diastolic pr essure was obtained with a pigtail catheter and pullback was performed after left ventriculography. All catheter exchanges and advancements were performed over a guidewire. At case completion the righ t radial sheath was removed and a Terumo radial band was applied with 14 ml of air. The patient tole rated the procedure well and there were no immediate complications. HEMODYNAMICS: LVEDP 9 mm Hg No gradient on LV to aortic pullback. LEFT VENTRICULOGRAM: EF 40%. Moderate global hypokinesis. CORONARY ANGIOGRAPHY: LM is a large very short caliber vessel with normal angiographic appearance. LAD is a large caliber vessel with normal angiographic appearance that wraps around the apex. D1 is a small caliber vessel with normal angiographic appearance. LCx is a moderate caliber non-dominant vessel with normal angiographic appearance. OM1 is a moderate caliber vessel with normal angiographic appearance. RCA is a moderate caliber dominant vessel with a proximal 30% stenosis. RPDA is a moderate caliber vessels with normal angiographic appearance. *There is mild advential calcium noted in the LAD system. Conclusion 1. No significant obstructive coronary disease. 2. Moderate LV dysfunction. EF 40% 3. Frequent PVC's and PACs 4. Normal filling pressures. Recommendations Aggressive Medical Therapy
[2016-11-26] MEDS: CHOLECALCIFEROL (VITAMIN D3) 5,000 UNIT CAPSULE PO SCH (16:20)
[2016-11-26] MEDS: ATORVASTATIN CALCIUM 40 MG TABLET. PO SCH (21:05)
[2016-11-27 03:16] VITALS: BP 117/72
[2016-11-27 05:59] LABS: CALCIUM 8.9 mg/dL (8.5-10.1); CREATININE 0.8 mg/dL (0.7-1.3); GFR 114.3; POTASSIUM 3.9 mmol/L (3.5-5.1)
[2016-11-27 07:33] VITALS: BP 136/78
[2016-11-27 07:48] LABS: FOLATE 7.7 ng/ml (3.2-20.0)
[2016-11-27 07:56] LABS: FREE T4 1.1 ng/dL (0.76-1.46)
[2016-11-27] MEDS: LISINOPRIL 5 MG TABLET. PO SCH (08:02)
[2016-11-27] MEDS: CHOLECALCIFEROL (VITAMIN D3) 5,000 UNIT CAPSULE PO SCH (08:02)
[2016-11-27] MEDS: ASPIRIN ENTERIC COATED 81 MG TABLET.DR. PO SCH (08:02)
--- NOTE | 2016-11-27 09:37 | PDOC ---
CARDIO Progress Notes Date and Time Date of Service 11/27/2016 Time of Evaluation 0930 Subjective Subjective: No Chest Pain, No shortness of breath, No Palpitations, No Dizziness Vitals Vitals Vital Signs Date Time Temp Pulse Resp B/P (MAP) Pulse Ox O2 Delivery O2 Flow Rate FiO2 11/27/16 08:02 64 136/78 11/27/16 08:00 Room Air 11/27/16 07:33 97.5 18 98 97.5 Weight Weight [ ] Input and Output Intake and Output Intake and Output 11/27/16 07:00 Intake Total 1240 ml Output Total 300 ml Balance 940 ml Intake Oral 740 ml IV Total 500 ml Output Urine Total 300 ml # Voids 1 Laboratory Labs Laboratory Tests Test 11/27/16 05:00 Erythrocyte Sedimentation Rate 7 (0-15) Sodium Level 142 mmol/L (136-145) Potassium Level 3.9 mmol/L (3.5-5.1) Chloride Level 107 mmol/L (98-107) Carbon Dioxide Level 28 mmol/L (21-32) Anion Gap 7 (6-14) Blood Urea Nitrogen 8 mg/dL (8-26) Creatinine 0.8 mg/dL (0.7-1.3) Estimated GFR (Cockcroft-Gault) 114.3 Glucose Level 87 mg/dL (70-99) Calcium Level 8.9 mg/dL (8.5-10.1) Vitamin B12 Level 414 pg/mL (247-911) Serum Folate 7.70 ng/ml (3.2-20.0) Free Thyroxine 1.10 ng/dL (0.76-1.46) Free Triiodothyronine (T3) pg/mL 2.24 pg/mL (2.18-3.98) Physical Exam HEENT: Neck Supple W Full Motion LUNGS: Clear to Auscultation Heart: S1S2, RRR (SR/SB with PACs) Abdomen: Soft N/T Extremities: No Edema, No Calf Tenderness Neurology: alert, oriented, follow commands Other Exams right radial wrist arteriotomy site intact no swelling, neurovascular status intact Assessment Assessment 1. NICM: good tolerance with increased activity per PT. EF 40% 2. Asymptomatic bradycardia: HR in the 80s but with intermittent episodes in the 40s. 3. Nonobstructive CAD: RCA 30% proximal stenosis 4. HTN: controlled 5. HLP 6. Dementia Recommendations 1. No AV daniel blocking agents for now. Recommend completely stopping aricept 2. Unclear etiology in regards to CM. Will note for any contributing arrhythmias. Event monitor for 4 wks and follow a week later. 3. Continue with statin, ASA, and lisinopril 4. Discussed plan significant with pt and family. 5. Repeat TTE in 3 months KIMMIE NEWMAN APRN Nov 27, 2016 09:37
[2016-11-27 10:28] VITALS: BP 111/60
[2016-11-27] MEDS ORDERED: LISI-338 PO (12:30)
[2016-11-27] MEDS ORDERED: MEMA10TA PO (12:30)
[2016-11-27] MEDS ORDERED: ALPR0.25 PO (12:30)
--- NOTE | 2016-11-27 12:34 | PDOC3 ---
Discharge Summary Visit Information Date of Admission: November 24, 2016 Date of Discharge: Nov 27, 2016 Admitting Diagnosis Comment: 1. Presyncope: likely from arrhythmia, negative for orthostasis 2. Bradyarrhythmia: with occasional PACs and PVCs. 3. Elevated troponin: Peaked at 0.297, no CP no SOA. 4. Dementia with acute on chronic encephalopathy 5. HTN: controlled. on HCTZ at home 6. BPH: on cardura 7. Dyslipidemia Brief Hospital Course Allergies Allergies Coded Allergies Type Severity Reaction Last Updated Verified No Known Drug Allergies 11/24/16 No Vital Signs Vital Signs Date Time Temp Pulse Resp B/P (MAP) Pulse Ox O2 Delivery O2 Flow Rate FiO2 11/27/16 10:28 97.6 87 18 111/60 (77) 97 Room Air 97.6 Lab Results Laboratory Tests Test 11/25/16 17:40 11/26/16 03:20 11/26/16 09:25 11/27/16 05:00 Heparin Anti-Xa Act, Unfractionated 0.23 IU/mL (0.30-0.70) 0.36 IU/mL (0.30-0.70) 0.48 IU/mL (0.30-0.70) White Blood Count 4.3 x10^3/uL (4.0-11.0) Red Blood Count 3.82 x10^6/uL (4.30-5.70) Hemoglobin 11.8 g/dL (13.0-17.5) Hematocrit 35.9 % (39.0-53.0) Mean Corpuscular Volume 94 fL (79-100) Mean Corpuscular Hemoglobin 31 pg (25-35) Mean Corpuscular Hemoglobin Concent 33 g/dL (31-37) Red Cell Distribution Width 13.6 % (11.5-14.5) Platelet Count 228 x10^3/uL (140-400) Sodium Level 142 mmol/L (136-145) 142 mmol/L (136-145) Potassium Level 3.2 mmol/L (3.5-5.1) 3.9 mmol/L (3.5-5.1) Chloride Level 107 mmol/L (98-107) 107 mmol/L (98-107) Carbon Dioxide Level 28 mmol/L (21-32) 28 mmol/L (21-32) Anion Gap 7 (6-14) 7 (6-14) Blood Urea Nitrogen 8 mg/dL (8-26) 8 mg/dL (8-26) Creatinine 0.8 mg/dL (0.7-1.3) 0.8 mg/dL (0.7-1.3) Estimated GFR (Cockcroft-Gault) 114.3 114.3 Glucose Level 109 mg/dL (70-99) 87 mg/dL (70-99) Calcium Level 8.5 mg/dL (8.5-10.1) 8.9 mg/dL (8.5-10.1) Erythrocyte Sedimentation Rate 7 (0-15) Vitamin B12 Level 414 pg/mL (247-911) Serum Folate 7.70 ng/ml (3.2-20.0) Free Thyroxine 1.10 ng/dL (0.76-1.46) Free Triiodothyronine (T3) pg/mL 2.24 pg/mL (2.18-3.98) Laboratory Tests Test 11/27/16 05:00 Erythrocyte Sedimentation Rate 7 (0-15) Sodium Level 142 mmol/L (136-145) Potassium Level 3.9 mmol/L (3.5-5.1) Chloride Level 107 mmol/L (98-107) Carbon Dioxide Level 28 mmol/L (21-32) Anion Gap 7 (6-14) Blood Urea Nitrogen 8 mg/dL (8-26) Creatinine 0.8 mg/dL (0.7-1.3) Estimated GFR (Cockcroft-Gault) 114.3 Glucose Level 87 mg/dL (70-99) Calcium Level 8.9 mg/dL (8.5-10.1) Vitamin B12 Level 414 pg/mL (247-911) Serum Folate 7.70 ng/ml (3.2-20.0) Free Thyroxine 1.10 ng/dL (0.76-1.46) Free Triiodothyronine (T3) pg/mL 2.24 pg/mL (2.18-3.98) Brief Hospital Course Mr. Nicholas is a 76 old AA male with dementia recently started on aricept admitted for presyncope and bradycardia, CArds recs stop aricept, may do namenda , Cardiac cath clean, HAd some agitation here, was on librium at home, controls his agitation, Better with xanax,. MOm request for xanax at home, GAve couple pills, To cont librium at home (pt likes librium), , Heavy discussion about aricpet vs namenda,. mom did not want to stop aricept initially - time35 mins in room alone,,education etc Updated rx given Dw cards Nov Pt seen and examined Dw RN DIspO; stephanie Proc: cardiac cath Discharge Information Condition at Discharge: Improved, Stable Disposition/Orders: D/C to Home Scheduled Cholecalciferol (Vitamin D3) (Vitamin D-3), 5,000 UNIT PO DAILY, (Reported) Donepezil Hcl (Donepezil Hcl), 1 TAB PO DAILY, (Reported) Doxazosin Mesylate (Doxazosin Mesylate), 1 TAB PO HS, (Reported) Hydrochlorothiazide (Hydrochlorothiazide Tablet ), 1 TAB PO DAILY, (Reported) Simvastatin (Simvastatin), 1 TAB PO QHS, (Reported) Scheduled PRN Chlordiazepoxide/Clidinium Br (Librax Capsule), 1 CAP PO DAILY PRN for ANXIETY / AGITATION, (Reported) VARSHA DILLON MD Nov 27, 2016 12:34
[2016-11-27 14:16] VITALS: BP 105/56
== END 2016-11-27 15:15 | disposition home or self-care (01) | DRG 286 ==
LOC: ER 14:07 → 2 SOUTH 16:21
PROVIDERS: ADMIT Internal Medicine; ATTEND Internal Medicine
PROC: 4A023N7 Measurement of Cardiac Sampling and Pressure, Left Heart, Percutaneous Approach (ICD-10-PCS; principal; 2016-11-26)
PROC: B2111ZZ Fluoroscopy of Multiple Coronary Arteries using Low Osmolar Contrast (ICD-10-PCS; 2016-11-26)
PROC: B2151ZZ Fluoroscopy of Left Heart using Low Osmolar Contrast (ICD-10-PCS; 2016-11-26)
DX: I49.9 Cardiac arrhythmia, unspecified (principal); G93.40 Encephalopathy, unspecified; I42.9 Cardiomyopathy, unspecified; I49.1 Atrial premature depolarization; R55 Syncope and collapse; I49.3 Ventricular premature depolarization; M19.90 Unspecified osteoarthritis, unspecified site; H53.8 Other visual disturbances; E78.5 Hyperlipidemia, unspecified; F03.90 Unspecified dementia, unspecified severity, without behavioral disturbance, psychotic disturbance, mood disturbance, and anxiety; F41.9 Anxiety disorder, unspecified; I10 Essential (primary) hypertension; I25.10 Atherosclerotic heart disease of native coronary artery without angina pectoris; N40.0 Benign prostatic hyperplasia without lower urinary tract symptoms; Z82.49 Family history of ischemic heart disease and other diseases of the circulatory system
CPT/HCPCS: 36415; 70450; 71010; 80048; 80053; 80061; 81001; 82550; 82607; 82746; 83735; 84439; 84443; 84481; 84484; 85027; 85520; 85651; 93005; 93306; 93458; 96360; C1769; C1892; J2250; J3010; J3490; J7030; Q9967; 99285-25

== ENCOUNTER 2020-08-05 07:22 | Emergency (ER) | payer MEDICARE, OTHER ==
[~2020-08-05] VITALS: Ht 182.9 cm; Wt 81.0 kg
[~2020-08-05 07:22] MED LIST: ALPR0.25 PO; CHLO1CAP PO; CHOL200059 PO; DONE10TA7 PO; DOXA8TAB59 PO; HYDR-2145 PO; LISI-517 PO; MEMA10TA PO; SIMV10TA15 PO
[2020-08-05 08:23] LABS: BASO % 0 % (0-3); EOS % 0 % (0-3); HEMATOCRIT 35.5 % (39.0-53.0); HEMOGLOBIN 11.5 g/dL (13.0-17.5); LYMPH # 0.6 x10^3/uL (1.0-4.8); LYMPH % 6 % (24-48); MEAN CORPUSCULAR HEMOGLOBIN 30 pg (25-35); MEAN CORPUSCULAR HGB CONC 32 g/dL (31-37); MEAN CORPUSCULAR VOLUME 93 fL (79-100); MONO # 0.5 x10^3/uL (0.0-1.1); MONO % 4 % (0-9); NEUT # 9.2 x10^3/uL (1.8-7.7); NEUT % 90 % (31-73); PLATELET COUNT 191 x10^3/uL (140-400); RED BLOOD COUNT 3.81 x10^6/uL (4.30-5.70); RED CELL DISTRIBUTION WIDTH 13.7 % (11.5-14.5); WHITE BLOOD COUNT 10.3 x10^3/uL (4.0-11.0)
[2020-08-05 08:35] LABS: ACETAMIN < 2 mcg/ml (10-30); ETHANOL < 10 mg/dL (0-10); SALIC < 2.8 mg/dL (2.8-20.0)
[2020-08-05 08:38] LABS: CALCIUM 9.4 mg/dL (8.5-10.1); GFR 87.4; POTASSIUM 3.9 mmol/L (3.5-5.1)
[2020-08-05 08:44] LABS: ALBUMIN 3.7 g/dL (3.4-5.0); MAGNESIUM 2.2 mg/dL (1.8-2.4); TOTAL BILIRUBIN 0.7 mg/dL (0.2-1.0); TOTAL PROTEIN 7.4 g/dL (6.4-8.2)
[2020-08-05 08:51] VITALS: BP 123/72
[2020-08-05 09:18] LABS: BILIRUBIN,URINE NEGATIVE (NEG); CLARITY,URINE CLEAR; COLOR,URINE YELLOW; NITRITE,URINE NEGATIVE (NEG); PROTEIN,URINE NEGATIVE (NEG-TRACE); UROBILINOGEN,URINE 0.2 mg/dL (0.2 mg/dL)
[2020-08-05 09:21] LABS: BARBITURATES NEG (NEG); BENZODIAZEPINES NEG (NEG); CANNABINOIDS NEG (NEG); COCAINE NEG (NEG); METHADONE NEG (NEG); OPIATES NEG (NEG); PHENCYCLIDINE NEG (NEG)
[2020-08-05 09:24] LABS: AMPHETAMINE/METHAMPHETAMINE NEG (NEG)
[2020-08-05 09:34] LABS: % LYMPHS 2 % (24-48); % MONOS 2 % (0-10); % SEGS 96 % (35-66); OVALOCYTES OCC; PLT ESTIMATE ADEQUATE (ADEQUATE)
[2020-08-05 09:40] LABS: BACTERIA,URINE 0 /HPF (0-FEW); RBC,URINE 0 /HPF (0-2); WBC,URINE 0 /HPF (0-4)
--- NOTE | 2020-08-05 11:26 | PHYS DOC ---
Past Medical History Past Medical History: Dementia, Hypertension Past Surgical History: No Surgical History Smoking Status: Never Smoker Alcohol Use: None Drug Use: None General Adult EDM: Chief Complaint: ALTERED MENTAL STATUS HPI: HPI: Patient is a 80 year old male with history of dementia Alzheimer, his family reported that he was missing some 2 AM this morning, patient was found walking on the street looking through people car's window on the street. Patient said he not sure why they brought him here. Patient denies any chest pain, no abdominal pain, no nausea vomiting, no suicidal ideation, no homicidal ideation. Review of Systems: Review of Systems: Constitutional: Denies fever or chills. [] Eyes: Denies change in visual acuity. [] HENT: Denies nasal congestion or sore throat. [] Respiratory: Denies cough or shortness of breath. [] Cardiovascular: Denies chest pain or edema. [] GI: Denies abdominal pain, nausea, vomiting, bloody stools or diarrhea. [] : Denies dysuria. [] Musculoskeletal: Denies back pain or joint pain. [] Integument: Denies rash. [] Neurologic: Denies headache, focal weakness or sensory changes. [] Endocrine: Denies polyuria or polydipsia. [] Lymphatic: Denies swollen glands. [] Psychiatric: Denies depression or anxiety. [] Heart Score: Risk Factors: Risk Factors: DM, Current or recent (<one month) smoker, HTN, HLP, family history of CAD, obesity. Risk Scores: Score 0 - 3: 2.5% MACE over next 6 weeks - Discharge Home Score 4 - 6: 20.3% MACE over next 6 weeks - Admit for Clinical Observation Score 7 - 10: 72.7% MACE over next 6 weeks - Early Invasive Strategies Allergies: Allergies: Allergies Coded Allergies Type Severity Reaction Last Updated Verified No Known Drug Allergies 11/24/16 No Physical Exam: PE: Constitutional: Well developed, well nourished, no acute distress, non-toxic appearance. [] HENT: Normocephalic, atraumatic, bilateral external ears normal, oropharynx moist, no oral exudates, nose normal. [] Eyes: PERRLA, EOMI, conjunctiva normal, no discharge. [] Neck: Normal range of motion, no tenderness, supple, no stridor. [] Cardiovascular:Heart rate regular rhythm, no murmur [] Lungs & Thorax: Bilateral breath sounds clear to auscultation [] Abdomen: Bowel sounds normal, soft, no tenderness, no masses, no pulsatile masses. [] Skin: Warm, dry, no erythema, no rash. [] Back: No tenderness, no CVA tenderness. [] Extremities: No tenderness, no cyanosis, no clubbing, ROM intact, no edema. [] Neurologic: Alert and oriented X 3, normal motor function, normal sensory function, no focal deficits noted. [] Psychologic: Affect normal, judgement normal, mood normal. [] Current Patient Data: Labs: Laboratory Tests Test 08/05/20 08:06 08/05/20 09:09 White Blood Count 10.3 x10^3/uL (4.0-11.0) Red Blood Count 3.81 x10^6/uL (4.30-5.70) L Hemoglobin 11.5 g/dL (13.0-17.5) L Hematocrit 35.5 % (39.0-53.0) L Mean Corpuscular Volume 93 fL (79-100) Mean Corpuscular Hemoglobin 30 pg (25-35) Mean Corpuscular Hemoglobin Concent 32 g/dL (31-37) Red Cell Distribution Width 13.7 % (11.5-14.5) Platelet Count 191 x10^3/uL (140-400) Neutrophils (%) (Auto) 90 % (31-73) H Lymphocytes (%) (Auto) 6 % (24-48) L Monocytes (%) (Auto) 4 % (0-9) Eosinophils (%) (Auto) 0 % (0-3) Basophils (%) (Auto) 0 % (0-3) Neutrophils # (Auto) 9.2 x10^3/uL (1.8-7.7) H Lymphocytes # (Auto) 0.6 x10^3/uL (1.0-4.8) L Monocytes # (Auto) 0.5 x10^3/uL (0.0-1.1) Eosinophils # (Auto) 0.0 x10^3/uL (0.0-0.7) Basophils # (Auto) 0.0 x10^3/uL (0.0-0.2) Segmented Neutrophils % 96 % (35-66) H Lymphocytes % 2 % (24-48) L Monocytes % 2 % (0-10) Platelet Estimate Adequate (ADEQUATE) Ovalocytes Occ Sodium Level 138 mmol/L (136-145) Potassium Level 3.9 mmol/L (3.5-5.1) Chloride Level 102 mmol/L (98-107) Carbon Dioxide Level 28 mmol/L (21-32) Anion Gap 8 (6-14) Blood Urea Nitrogen 14 mg/dL (8-26) Creatinine 1.0 mg/dL (0.7-1.3) Estimated GFR (Cockcroft-Gault) 87.4 BUN/Creatinine Ratio 14 (6-20) Glucose Level 103 mg/dL (70-99) H Calcium Level 9.4 mg/dL (8.5-10.1) Magnesium Level 2.2 mg/dL (1.8-2.4) Total Bilirubin 0.7 mg/dL (0.2-1.0) Aspartate Amino Transferase (AST) 33 U/L (15-37) Alanine Aminotransferase (ALT) 41 U/L (16-63) Alkaline Phosphatase 54 U/L (46-116) Total Protein 7.4 g/dL (6.4-8.2) Albumin 3.7 g/dL (3.4-5.0) Albumin/Globulin Ratio 1.0 (1.0-1.7) Salicylates Level < 2.8 mg/dL (2.8-20.0) L Salicylate Last Dose Date Unknown Salicylate Last Dose Time Unknown Acetaminophen Level < 2 mcg/ml (10-30) L Acetaminophen Last Dose Date Unknown Acetaminophen Last Dose Time Unknown Ethyl Alcohol Level < 10 mg/dL (0-10) Urine Collection Type Unknown Urine Color Yellow Urine Clarity Clear Urine pH 6.0 (<5.0-8.0) Urine Specific [place] 1.020 (1.000-1.030) Urine Protein Negative mg/dL (NEG-TRACE) Urine Glucose (UA) Negative mg/dL (NEG) Urine Ketones (Stick) Trace mg/dL (NEG) Urine Blood Negative (NEG) Urine Nitrite Negative (NEG) Urine Bilirubin Negative (NEG) Urine Urobilinogen Dipstick 0.2 mg/dL (0.2 mg/dL) Urine Leukocyte Esterase Negative (NEG) Urine RBC 0 /HPF (0-2) Urine WBC 0 /HPF (0-4) Urine Bacteria 0 /HPF (0-FEW) Urine Mucus Slight /LPF Urine Opiates Screen Neg (NEG) Urine Methadone Screen Neg (NEG) Urine Barbiturates Neg (NEG) Urine Phencyclidine Screen Neg (NEG) Urine Amphetamine/Methamphetamine Neg (NEG) Urine Benzodiazepines Screen Neg (NEG) Urine Cocaine Screen Neg (NEG) Urine Cannabinoids Screen Neg (NEG) Urine Ethyl Alcohol Neg (NEG) Laboratory Tests 08/05/20 08:06 Laboratory Tests 08/05/20 08:06 Vital Signs: Vital Signs Date Time Temp Pulse Resp B/P (MAP) Pulse Ox O2 Delivery O2 Flow Rate FiO2 08/05/20 08:51 123/72 (89) 08/05/20 07:30 97.6 60 18 98 Room Air 97.6 EKG: EKG: [] Radiology/Procedures: Radiology/Procedures: [] Course & Med Decision Making: Course & Med Decision Making Pertinent Labs and Imaging studies reviewed. (See chart for details) Patient is a 80-year-old male who has dementia, he is awake alert oriented in the ER here, he is in no acute distress, he will be discharged home with his family. [place] Disclaimer: Dragon Disclaimer: This electronic medical record was generated, in whole or in part, using a voice recognition dictation system. Departure Departure Impression: Primary Impression: Alzheimer's disease Additional Impression: Dementia Disposition: 01 DC HOME SELF CARE/HOMELESS Condition: STABLE Referrals: HUMBERTO PINON (PCP) Patient Instructions: Alzheimer's Disease Caregiver Guide, [id number], Alzheimer's Disease-Brief CLYDE GONZALEZ DO Aug 05, 2020 11:26
== END 2020-08-05 12:09 | disposition home or self-care (01) ==
LOC: ER 07:22
DX: G30.9 Alzheimer's disease, unspecified (principal); I10 Essential (primary) hypertension
CPT/HCPCS: 36415; 80053; 80307; 80329; 81001; 83735; 85007; 85025; 99283; G0480